=== PATIENT | male | born 1995 | race Caucasian/White ===

== ENCOUNTER 2016-04-19 20:43 | Emergency (ER) | payer BC ==
--- NOTE | 2016-04-19 21:12 | ERPHSYRPT ---
- History of Present Illness Time Seen by Provider: 04/19/16 21:02 Source: patient Exam Limitations: no limitations Patient Subjective Stated Complaint: Per EMS pt with history of seizures, takes medication but unsure of name - pt sts not taken medicine for 2 weeks. Sts tonight that he felt tired and then "went out". Pt sts he woke up to EMS starting IV. Sees Dr. Bhandari and Dr. Marquez. EMS sts family described grand mal seizure lasting a few minutes. Sts pain in temples 08/15. Pt denies falling or striking head. Pt sts heard sounds prior to having seizure. Triage Nursing Assessment: Pt alert, answers all questions appropriately at present however pt still appears sleepy. Able to follow commands. Skin p/w/d, resps non-labored. Physician History: TONIGHT PT HAD TINNITUS WHILE STANDING UP IN THE BATHROOM URINATING AND LOST CONSCIOUSNESS WITH A FEW MINUTES OF GENERALIZED SEIZURE ACTIVITY. PT WAS ON KEPPRA 500MG DAILY FOR HIS SEIZURES BUT HAS NOT TAKEN IT FOR THE PAST 6 MONTHS. PT ALSO STATES HE IS ANXIOUS ABOUT BECOMING A FATHER IN ABOUT 4 MONTHS, QUITTING HIS JOB AT [employer] YESTERDAY AND STARTING A NEW JOB AT [employer] ON . PT DENIES CHEST PAIN, SHORTNESS OF AIR, ABDOMINAL PAIN, BACK PAIN; ADMITS TO A BI-TEMPORAL HEADACHE(COMMON FOR PT POST SEIZURE). Allergies/Adverse Reactions: ceftriaxone sodium [From Rocephin] Allergy (Verified 04/19/16 20:46) sulfamethoxazole [From Bactrim] Adverse Reaction (Severe, Verified 04/19/16 20: 46) urinate blood trimethoprim [From Bactrim] Adverse Reaction (Severe, Verified 04/19/16 20:46) urinate blood Home Medications: Anti-Seizure Medication 04/19/16 [History] Escitalopram Oxalate [Lexapro] 0 mg 04/19/16 [History] Hx Tetanus, Diphtheria Vaccination/Date Given: Yes (up to date) Hx Influenza Vaccination/Date Given: No Hx Pneumococcal Vaccination/Date Given: No Immunizations Up to Date: Yes - Review of Systems Ears, Nose, & Throat: Tinnitus Respiratory: No Dyspnea Cardiac: No Chest Pain Abdominal/Gastrointestinal: No Abdominal Pain, No Vomiting Musculoskeletal: No Back Pain Neurological: Headache, Seizure Psychological: Anxiety All Other Systems: Reviewed and Negative - Past Medical History Pertinent Past Medical History: Yes Neurological History: Seizures Musculoskeletal History: Other History: No Pertinent History Psycho-Social History: Other Other Medical History: CHRONIC BACK PAIN - Past Surgical History Past Surgical History: Yes Neuro Surgical History: No Pertinent History Cardiac: No Pertinent History Respiratory: No Pertinent History Gastrointestinal: No Pertinent History Genitourinary: No Pertinent History Musculoskeletal: Orthopedic Surgery Male Surgical History: No Pertinent History Other Surgical History: right leg surgery - Social History Smoking Status: Light tobacco smoker Exposure to second hand smoke: No Drug Use: none Patient Lives Alone: No - Nursing Vital Signs Nursing Vital Signs: Initial Vital Signs Temperature 97.2 F Temperature Source Oral Pulse Rate 108 Respiratory Rate 16 Blood Pressure [] 166/87 Pain Intensity 7 - Physical Exam General Appearance: alert Eye Exam: PERRL/EOMI Ears, Nose, Throat Exam: pharynx normal, moist mucous membranes Neck Exam: full range of motion Respiratory Exam: lungs clear Cardiovascular Exam: normal heart sounds Gastrointestinal/Abdomen Exam: soft, normal bowel sounds Back Exam: normal range of motion Extremity Exam: normal inspection, No pedal edema Neurologic Exam: alert, oriented x 3, cooperative, sensation nml, No motor deficits, No motor weakness Skin Exam: abrasion (~ 3 CM ABRASION/CONTUSION OF THE LEFT POSTERIOR MID BACK WITHOUT TENDERNESS OR CREPITUS.) SpO2 Interpretation: normal SpO2: 98 Oxygen Delivery: Room Air - Course Nursing assessment & vital signs reviewed: Yes - Radiology Exams Left Ribs X-ray Interpretation: Interpreted by me, No Fracture Ordered Tests: Active Orders 24 hr Category Date Time Status Maintenance Instructor STAT Care 04/19/16 21:05 Active IV Insertion STAT Care 04/19/16 21:07 Active RIBS UNILATERAL Stat Exams 04/19/16 21:13 Taken CBC W DIFF Stat Lab 04/19/16 21:19 Completed CMP Stat Lab 04/19/16 21:19 Completed MAGNESIUM Stat Lab 04/19/16 21:19 Completed UA W/ MICROSCOPIC Stat Lab 04/19/16 22:18 Completed Urine Triage Profile Stat Lab 04/19/16 22:18 Completed Medication Summary Generic Name Dose Route Start Last Admin Trade Name Freq PRN Reason Stop Dose Admin Levetiracetam 500 mg 04/19/16 21:15 04/19/16 21:42 Keppra 500 Mg PO 05/19/16 21:14 500 mg 1XONLY MAGGIE Administration Discontinued Medications Generic Name Dose Route Start Last Admin Trade Name Ashley PRN Reason Stop Dose Admin Potassium Chloride 20 meq 04/19/16 21:57 04/19/16 22:05 Klor Con 10 Meq PO 04/19/16 21:58 20 meq STAT ONE Administration Potassium Chloride Confirm 04/19/16 22:05 Klor Con 10 Meq Administered 04/19/16 22:06 Dose 20 meq PO .STK-MED ONE Lab/Rad Data: Laboratory Result Diagrams 04/19/16 21:19 04/19/16 21:19 Laboratory Results 04/19/16 04/19/16 04/19/16 Range/Units 22:18 22:18 21:19 WBC (4.0-10.5) K/mm3 RBC (4.1-5.6) M/mm3 Hgb (12.5-18.0) gm/dl Hct (42-50) % MCV (78-100) fl MCH (26-32) pg MCHC (32-36) g/dl RDW (11.5-14.0) % Plt Count (150-450) K/mm3 MPV (6-9.5) fl Gran % (36.0-66.0) % Lymphocytes % (24.0-44.0) % Monocytes % (0.0-12.0) % Eosinophils % (0.00-5.0) % Basophils % (0.0-0.4) % Basophils # (0-0.4) Sodium 143 (136-145) mEq/L Potassium 3.4 L (3.5-5.1) mEq/L Chloride 101 (98-107) mEq/L Carbon Dioxide 14.5 L* (21-32) mEq/L Anion Gap 30.9 H (5-15) MEQ/L BUN 12 (9-20) mg/dL Creatinine 1.81 H (0.55-1.30) mg/dl Estimated GFR 50 ML/MIN Glucose 137 H (70-110) MG/DL Calcium 9.1 (8.5-10.1) mg/dL Magnesium 2.3 (1.8-2.4) mg/dL Total Bilirubin 0.7 (0.2-1.0) mg/dL AST 20 (15-37) U/L ALT 20 (12-78) U/L Alkaline Phosphatase 78 (46-116) U/L Serum Total Protein 8.0 (6.4-8.2) gm/dL Albumin 5.1 H (3.4-5.0) g/dL Ur Collection Type VOID Urine Color YELLOW (YELLOW) Urine Appearance CLEAR (CLEAR) Urine pH 5.0 (5-6) Ur Specific [place] >=1.030 (1.005-1.025) Urine Protein 30 (Negative) Urine Glucose (UA) NEGATIVE (NEGATIVE) mg/dL Urine Ketones SMALL-15 (NEGATIVE) Urine Nitrite NEGATIVE (NEGATIVE) Urine Bilirubin NEGATIVE (NEGATIVE) Urine Urobilinogen 0.2 (0-1) mg/dL Urine WBC (Auto) NEGATIVE (NEGATIVE) Urine RBC (Auto) TRACE-LYSED (0-5) Juan/ul Urine Microscopic RBC 5-10 (0-2) /HPF Urine Microscopic WBC 0-2 (0-5) /HPF Ur Epithelial Cells RARE (FEW) /HPF Urine Bacteria MODERATE (NEGATIVE) /HPF Hyaline Casts 0-2 (0-2) /LPF Urine Mucus SLIGHT (NEGATIVE) /HPF Urine Opiates Level NEG. (NEGATIVE) Ur Methadone NEG. (NEGATIVE) Urine Barbiturates NEG. (NEGATIVE) Ur Phencyclidine (PCP) NEG. (NEGATIVE) Urine Amphetamine POS. (NEGATIVE) U Benzodiazepine Level NEG. (NEGATIVE) Urine Cocaine NEG. (NEGATIVE) Urine Marijuana (THC) NEG. (NEGATIVE) Specimen Received 04/19/16220904/19/16 Range/Units 21:19 WBC 8.3 (4.0-10.5) K/mm3 RBC 5.30 (4.1-5.6) M/mm3 Hgb 16.9 (12.5-18.0) gm/dl Hct 48.6 (42-50) % MCV 91.7 (78-100) fl MCH 31.9 (26-32) pg MCHC 34.8 (32-36) g/dl RDW 12.1 (11.5-14.0) % Plt Count 248 (150-450) K/mm3 MPV 11.1 H (6-9.5) fl Gran % 37.5 (36.0-66.0) % Lymphocytes % 50.2 H (24.0-44.0) % Monocytes % 10.5 (0.0-12.0) % Eosinophils % 1.3 (0.00-5.0) % Basophils % 0.5 (0.0-0.4) % Basophils # 0.04 (0-0.4) Sodium (136-145) mEq/L Potassium (3.5-5.1) mEq/L Chloride (98-107) mEq/L Carbon Dioxide (21-32) mEq/L Anion Gap (5-15) MEQ/L BUN (9-20) mg/dL Creatinine (0.55-1.30) mg/dl Estimated GFR ML/MIN Glucose (70-110) MG/DL Calcium (8.5-10.1) mg/dL Magnesium (1.8-2.4) mg/dL Total Bilirubin (0.2-1.0) mg/dL AST (15-37) U/L ALT (12-78) U/L Alkaline Phosphatase (46-116) U/L Serum Total Protein (6.4-8.2) gm/dL Albumin (3.4-5.0) g/dL Ur Collection Type Urine Color (YELLOW) Urine Appearance (CLEAR) Urine pH (5-6) Ur Specific [place] (1.005-1.025) Urine Protein (Negative) Urine Glucose (UA) (NEGATIVE) mg/dL Urine Ketones (NEGATIVE) Urine Nitrite (NEGATIVE) Urine Bilirubin (NEGATIVE) Urine Urobilinogen (0-1) mg/dL Urine WBC (Auto) (NEGATIVE) Urine RBC (Auto) (0-5) Juan/ul Urine Microscopic RBC (0-2) /HPF Urine Microscopic WBC (0-5) /HPF Ur Epithelial Cells (FEW) /HPF Urine Bacteria (NEGATIVE) /HPF Hyaline Casts (0-2) /LPF Urine Mucus (NEGATIVE) /HPF Urine Opiates Level (NEGATIVE) Ur Methadone (NEGATIVE) Urine Barbiturates (NEGATIVE) Ur Phencyclidine (PCP) (NEGATIVE) Urine Amphetamine (NEGATIVE) U Benzodiazepine Level (NEGATIVE) Urine Cocaine (NEGATIVE) Urine Marijuana (THC) (NEGATIVE) Specimen Received - Departure Time of Disposition: 23:15 Departure Disposition: Home Clinical Impression: SEIZURE, AMPHETAMINE USE, HYPOKALEMIA, ABRASION/CONTUSION TO LEFT MID BACK, ELEVATED CREATININE Condition: Fair Critical Care Time: No Referrals: KATIE BHANDARI MD [Primary Care Provider] - Instructions: Seizure Disorder -- Adult, Abrasion, Contusion Additional Instructions: FOLLOW UP WITH PRIVATE DOCTOR TOMORROW. NEOSPORIN DAILY TO ABRASION ON LEFT MID BACK FOR 1 WEEK. AVOID USING AMPHETAMINE.
[2016-04-19] MEDS ORDERED: KEPPRA 500 MG PO SCH (21:15)
[2016-04-19 21:22] LABS: BASOPHIL % 0.5 % (0.0-0.4); Eosinophil % 1.3 % (0.00-5.0); Granulocytes % 37.5 % (36.0-66.0); Lymphocytes % 50.2 % (24.0-44.0); Mean Cell Volume 91.7 fl (78-100); Mean Corpuscular Hemoglobin 31.9 pg (26-32); Mean Platelet Volume 11.1 fl (6-9.5); Monocytes % 10.5 % (0.0-12.0); Platelet Count 248 K/mm3 (150-450); Red Cell Distribution Width 12.1 % (11.5-14.0); White Blood Count 8.3 K/mm3 (4.0-10.5)
[2016-04-19 21:43] LABS: ALBUMIN 5.1 g/dL (3.4-5.0); ANION GAP 30.9 MEQ/L (5-15); BILIRUBIN,TOTAL 0.7 mg/dL (0.2-1.0); MAGNESIUM 2.3 mg/dL (1.8-2.4); Potassium 3.4 mEq/L (3.5-5.1)
[2016-04-19 21:45] LABS: Carbon Dioxide 14.5 mEq/L (21-32)
[2016-04-19] MEDS ORDERED: Klor Con 10 MEQ PO ONE ×2 (21:57→22:05)
[2016-04-19 22:52] VITALS: O2SAT 98
[2016-04-19 23:11] LABS: Bacteria MODERATE /HPF (NEGATIVE); COMPLETE URINE MICROSCOPIC? YES; Collection Type VOID; Epithelial Cells RARE /HPF (FEW); Hyaline Casts 0-2 /LPF (0-2); Mucus SLIGHT /HPF (NEGATIVE); WBC 0-2 /HPF (0-5)
[2016-04-19 23:38] VITALS: BP 164/87; PULSE 92
--- NOTE | 2016-04-20 09:04 | XRAY ---
Indication: Pain following fall. Comparison: None 2 views of the left ribs obtained. No bony, articular, or soft tissue abnormalities.
== END 2016-04-19 23:31 | disposition home or self-care (01) ==
LOC: ED 20:43
DX: R56.9 Unspecified convulsions (principal); F15.90 Other stimulant use, unspecified, uncomplicated; E87.6 Hypokalemia; S20.412A Abrasion of left back wall of thorax, initial encounter; S20.222A Contusion of left back wall of thorax, initial encounter; W18.39XA Other fall on same level, initial encounter; Y93.E8 Activity, other personal hygiene; R94.4 Abnormal results of kidney function studies; Z79.899 Other long term (current) drug therapy; H93.19 Tinnitus, unspecified ear; R51 Headache
CPT/HCPCS: 36415; 71100; 80053; 80307; 81000; 83735; 85025; 93041; 99283; 99284

== ENCOUNTER 2016-06-10 22:00 | Emergency (ER) | payer BC ==
[2016-06-10 22:05] VITALS: BP 133/77; O2SAT 100
[2016-06-10] MEDS ORDERED: XYLOCAINE 1% HCL 20 ML MDV ONE (22:31)
--- NOTE | 2016-06-10 22:46 | ERPHSYRPT ---
- History of Present Illness Time Seen by Provider: 06/10/16 22:42 Source: patient, police Exam Limitations: no limitations Patient Subjective Stated Complaint: pt brought to ed from local by guard- reports pt reported having a seizure tonight-non witness-post ictal state not witnessed-pt reprots hx of epilepsy-reports pain to tempal area Triage Nursing Assessment: pt pink warm et dry-able to answer questions correctly-pupils responsive-moving lo xtremities with ease Physician History: pt brought to ed from local by guard-reports pt reported having a seizure tonight-non witness-post ictal state not witnessed-pt reprots hx of epilepsy- reports pain to [place] area. laceration on left upper eye lid Timing/Duration: today Severity: mild Associated Symptoms: denies symptoms Allergies/Adverse Reactions: ceftriaxone sodium [From Rocephin] Allergy (Verified 06/10/16 22:05) sulfamethoxazole [From Bactrim] Adverse Reaction (Severe, Verified 06/10/16 22: 05) urinate blood trimethoprim [From Bactrim] Adverse Reaction (Severe, Verified 06/10/16 22:05) urinate blood Home Medications: Anti-Seizure Medication 04/19/16 [History] Escitalopram Oxalate [Lexapro] 20 mg PO DAILY 04/19/16 [History] Hx Tetanus, Diphtheria Vaccination/Date Given: Yes Hx Influenza Vaccination/Date Given: Yes (2015) Hx Pneumococcal Vaccination/Date Given: No Immunizations Up to Date: Yes - Review of Systems Constitutional: No Fever, No Chills Eyes: No Symptoms Ears, Nose, & Throat: No Symptoms Respiratory: No Cough, No Dyspnea Cardiac: No Chest Pain, No Edema, No Syncope Abdominal/Gastrointestinal: No Abdominal Pain, No Nausea, No Vomiting, No Diarrhea Genitourinary Symptoms: No Dysuria Musculoskeletal: No Back Pain, No Neck Pain Skin: Other (left upper eyelid laceration), No Rash Neurological: No Dizziness, No Focal Weakness, No Sensory Changes Psychological: No Symptoms Endocrine: No Symptoms All Other Systems: Reviewed and Negative - Past Medical History Pertinent Past Medical History: Yes Neurological History: Epilepsy, Seizures Musculoskeletal History: Other History: No Pertinent History Psycho-Social History: Other Other Medical History: CHRONIC BACK PAIN - Past Surgical History Past Surgical History: Yes Neuro Surgical History: No Pertinent History Cardiac: No Pertinent History Respiratory: No Pertinent History Gastrointestinal: No Pertinent History Genitourinary: No Pertinent History Musculoskeletal: Orthopedic Surgery Male Surgical History: No Pertinent History Other Surgical History: right leg surgery - Social History Smoking Status: Never smoker Exposure to second hand smoke: No Drug Use: none Patient Lives Alone: No - Nursing Vital Signs Nursing Vital Signs: Initial Vital Signs Temperature 97.7 F Temperature Source Oral Pulse Rate 90 Respiratory Rate 20 Blood Pressure [] 133/77 Pain Intensity 6 - Physical Exam General Appearance: no apparent distress, alert Eye Exam: PERRL/EOMI, eyes nml inspection Ears, Nose, Throat Exam: normal ENT inspection, TMs normal, pharynx normal, moist mucous membranes Neck Exam: normal inspection, non-tender, supple, full range of motion Respiratory Exam: normal breath sounds, lungs clear, No respiratory distress Cardiovascular Exam: regular rate/rhythm, normal heart sounds, normal peripheral pulses Gastrointestinal/Abdomen Exam: soft, normal bowel sounds, No tenderness, No mass Back Exam: normal inspection, normal range of motion, No CVA tenderness, No vertebral tenderness Extremity Exam: normal inspection, normal range of motion, pelvis stable Neurologic Exam: alert, oriented x 3, cooperative, normal mood/affect, nml cerebellar function, nml station & gait, sensation nml, No motor deficits Skin Exam: normal color, warm, dry, laceration (3 cms long left upper eye lid superficial laceration), No rash Lymphatic Exam: No adenopathy SpO2: 100 Oxygen Delivery: Room Air Procedures - Laceration/Wound Repair Left Other Wound Location: Left (upper eyelid) Wound Length (cm): 3 Wound's Depth, Shape: superficial Wound Explored: clean Irrigated: Yes Hibiclens Prep: Yes Anesthesia: local, 1% Lidocaine Volume Anesthetic (ccs): 3 Wound Debrided: minimal Wound Repaired With: sutures Suture Size/Type: 4-0, nylon Number of Sutures: 3 Layer Closure?: No - Course Nursing assessment & vital signs reviewed: Yes Ordered Tests: Medication Summary Discontinued Medications Generic Name Dose Route Start Last Admin Trade Name Freq PRN Reason Stop Dose Admin Lidocaine HCl Confirm 06/10/16 22:31 Xylocaine 1% Hcl 20 Ml Mdv Administered 06/10/16 22:32 Dose 5 ml .ROUTE .STK-MED ONE - Progress Progress: improved Counseled pt/family regarding: diagnosis, need for follow-up - Departure Time of Disposition: 23:06 Departure Disposition: Usp/Jail Clinical Impression: Seizure disorder Laceration of eyebrow and forehead Qualifiers: Encounter type: initial encounter Laterality: left Qualified Code(s): S01.112A - Laceration without foreign body of left eyelid and periocular area, initial encounter Condition: Stable Critical Care Time: No Referrals: KATIE BHANDARI MD [Primary Care Provider] - Instructions: Seizure Disorder -- Adult, Care for a Laceration After Repair, Laceration Repair -- Simple Additional Instructions: Please contact your physician for adjustment of your seizure medication dose. You have received 3 sutures on your left upper eyelid. Suture removal in 7 days. Please follow the instructions given to you. Please take your medication as prescribed if given. If symptoms recur or get worse, come back to the emergency room if you cannot reach your primary care physician, or call your primary care physician for an appointment. Again if your symptoms get worse, come back to the emergency room. Thanks for visiting emergency room, and let us take care of you.
[2016-06-10 23:08] VITALS: PULSE 88
[2016-06-11] MEDS ORDERED: XYLOCAINE 1% HCL 20 ML MDV IJ ONE (06:43)
== END 2016-06-10 23:23 | disposition home or self-care (01) ==
LOC: ED 22:00
PROC: 08QPXZZ Repair Left Upper Eyelid, External Approach (ICD-10-PCS; principal; 2016-06-10)
DX: S01.112A Laceration without foreign body of left eyelid and periocular area, initial encounter (principal); G40.909 Epilepsy, unspecified, not intractable, without status epilepticus
CPT/HCPCS: 12013; 99283

== ENCOUNTER 2017-08-15 07:56 | Emergency (ER) | payer BC ==
[2017-08-15] MEDS ORDERED: BACIGUENT PACKET TP ONE (08:12)
[2017-08-15] MEDS ORDERED: TORAdol 30 mg Injection IM ONE (08:13)
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
[2017-08-15] MEDS ORDERED: TORAdol 30 mg Injection ONE (08:29)
[2017-08-15] MEDS ORDERED: BACIGUENT PACKET ONE (08:29)
[2017-08-15 08:56] VITALS: BP 124/67; PULSE 51; O2SAT 96
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
== END 2017-08-15 09:10 | disposition home or self-care (01) ==
LOC: ED 07:56
DX: S40.022A Contusion of left upper arm, initial encounter (principal); S40.021A Contusion of right upper arm, initial encounter; S56.911A Strain of unspecified muscles, fascia and tendons at forearm level, right arm, initial encounter; M79.601 Pain in right arm; S00.511A Abrasion of lip, initial encounter; S50.811A Abrasion of right forearm, initial encounter; S00.532A Contusion of oral cavity, initial encounter; S05.11XA Contusion of eyeball and orbital tissues, right eye, initial encounter; V47.5XXA Car driver injured in collision with fixed or stationary object in traffic accident, initial encounter
CPT/HCPCS: 72040; 73060; 73090; 96372; 99284; J1885; A9270-GY

== ENCOUNTER 2017-09-20 22:48 | Emergency (ER) | payer BC, MEDICAID, OTHER ==
[2017-09-20] MEDS ORDERED: Phenergan 25 MG INJ IV ONE (23:11)
[2017-09-20] MEDS ORDERED: Sodium Chloride 0.9% 1000 ML 1,000 ML IV STA (23:11)
[2017-09-20] MEDS ORDERED: Sodium Chloride 0.9% 1000 ML 1,000 ML ONE (23:15)
[2017-09-20] MEDS ORDERED: Phenergan 25 MG INJ ONE (23:15)
--- NOTE | 2017-09-20 23:16 | ERPHSYRPT ---
- History of Present Illness Time Seen by Provider: 09/20/17 23:08 Source: patient Exam Limitations: no limitations Patient Subjective Stated Complaint: severe abdominal pain with N&V, and diarhea Triage Nursing Assessment: Pt is a resident at [facility], brought in by EMS with c/o of severe abdominal pain all day with nausea, vomiting, and diarhea , passed out and fell out of bed, was unresponsive for 5-6 minutes per long-term personnel, pt stated that he was hallucinating seeing his grandfather and was really hot when all of this happened, states that he has had abdominal pain for over a year but was using meth at the time so he thought it was due to that , abdomen is tender to touch, denies radiation, pulses normal, BP 147/91, doesn' t appear to be in any distress Physician History: 22-year-old white male resident of the long-term with history of epilepsy, seizures, chronic back pain. Patient apparently complaining of abdominal pain nausea diarrhea vomiting all day long. Apparently began to complain of severe abdominal pain rolled out of bed became unresponsive for 5-6 minutes apparently having hallucinations and seeing his grandfather. Patient apparently with a history of methamphetamine use he states he has not had any methamphetamines for approximately 30 days. Past medical history includes epilepsy, seizures, chronic back pain. Past surgical history includes orthopedic surgery and right leg surgery. Social history positive for methamphetamine abuse in the past. Timing/Duration: today (just prior to arrival) Severity: moderate Modifying Factors: Improves With: nothing Associated Symptoms: nausea, vomiting, abdominal pain, syncope Allergies/Adverse Reactions: ceftriaxone sodium [From Rocephin] Allergy (Verified 09/20/17 23:06) sulfamethoxazole [From Bactrim] Adverse Reaction (Severe, Verified 09/20/17 23: 06) urinate blood trimethoprim [From Bactrim] Adverse Reaction (Severe, Verified 09/20/17 23:06) urinate blood Hx Tetanus, Diphtheria Vaccination/Date Given: Yes Hx Influenza Vaccination/Date Given: Yes (2015) Hx Pneumococcal Vaccination/Date Given: No - Review of Systems Constitutional: No Fever, No Chills Eyes: No Symptoms Ears, Nose, & Throat: No Symptoms Respiratory: No Cough, No Dyspnea Cardiac: Syncope, No Chest Pain, No Edema Abdominal/Gastrointestinal: Abdominal Pain, Nausea, Vomiting, Diarrhea Genitourinary Symptoms: No Dysuria Musculoskeletal: No Back Pain, No Neck Pain Skin: No Rash Neurological: No Dizziness, No Focal Weakness, No Sensory Changes Psychological: Other (apparently hallucinating in long-term) Endocrine: No Symptoms All Other Systems: Reviewed and Negative - Past Medical History Pertinent Past Medical History: Yes Neurological History: Epilepsy, Seizures Musculoskeletal History: Other History: No Pertinent History Psycho-Social History: Other Other Medical History: CHRONIC BACK PAIN - Past Surgical History Past Surgical History: Yes Neuro Surgical History: No Pertinent History Cardiac: No Pertinent History Respiratory: No Pertinent History Gastrointestinal: No Pertinent History Genitourinary: No Pertinent History Musculoskeletal: Orthopedic Surgery Male Surgical History: No Pertinent History Other Surgical History: right leg surgery - Social History Smoking Status: Never smoker Exposure to second hand smoke: No Drug Use: methamphetamines Patient Lives Alone: No - Nursing Vital Signs Nursing Vital Signs: Initial Vital Signs Temperature 98.0 F 09/20/17 22:50 Pulse Rate 85 09/20/17 22:50 Respiratory Rate 14 09/20/17 22:50 Blood Pressure 144/93 09/20/17 22:50 O2 Sat by Pulse Oximetry 98 09/20/17 22:50 Pain Scale Pain Intensity 9 - Physical Exam General Appearance: no apparent distress, alert Eye Exam: PERRL/EOMI, eyes nml inspection Ears, Nose, Throat Exam: normal ENT inspection, TMs normal, pharynx normal, moist mucous membranes Neck Exam: normal inspection, non-tender, supple, full range of motion Respiratory Exam: normal breath sounds, lungs clear, No respiratory distress Cardiovascular Exam: regular rate/rhythm, normal heart sounds, normal peripheral pulses Gastrointestinal/Abdomen Exam: normal bowel sounds, tenderness (Mild diffuse tenderness) Back Exam: normal inspection, normal range of motion, No CVA tenderness, No vertebral tenderness Extremity Exam: normal inspection, normal range of motion, pelvis stable Neurologic Exam: alert, oriented x 3, cooperative, member of [employer] II-XII nml as tested, normal mood/affect, nml cerebellar function, nml station & gait, sensation nml, No motor deficits Skin Exam: normal color, warm, dry, No rash Lymphatic Exam: No adenopathy SpO2 Interpretation: normal (98%) SpO2: 98 Oxygen Delivery: Room Air - Course Nursing assessment & vital signs reviewed: Yes EKG Interpreted by Me: RATE (91 bpm), Sinus Rhythm, NORMAL AXIS, Other - CT Exams Abdomen/Pelvis CT Interpretation: Tele-radiologist Report (CT abdomen and pelvis without contrast: Impression 1. Gas and fluid throughout the small bowel. Subtle distal small bowel wall thickening. Liquid stool in portions of the colon. Findings may represent a degree of diarrhea/enterocolitis. No bowel obstruction. 2. Punctate bilateral nonobstructing nephrolithiasis) Ordered Tests: Active Orders 24 hr Category Date Time Status EKG-ER Only STAT Care 09/20/17 23:11 Active IV Insertion STAT Care 09/20/17 23:11 Active ABDOMEN AND PELVIS W/0 CONTRAS [CT] Stat Exams 09/21/17 00:04 Taken ACETAMINOPHEN Stat Lab 09/20/17 23:25 Completed AMYLASE Stat Lab 09/20/17 23:25 Completed CBC W DIFF Stat Lab 09/20/17 23:25 Completed CMP Stat Lab 09/20/17 23:25 Completed LIPASE Stat Lab 09/20/17 23:25 Completed SALICYLATE Stat Lab 09/20/17 23:25 Completed UA W/RFX UR CULTURE Stat Lab 09/20/17 23:50 Completed Urine Triage Profile Stat Lab 09/20/17 23:50 Completed Medication Summary Discontinued Medications Generic Name Dose Route Start Last Admin Trade Name Freq PRN Reason Stop Dose Admin Diphenhydramine HCl 25 mg 09/21/17 00:03 09/21/17 00:12 Benadryl 50 Mg/Ml IV 09/21/17 00:04 25 mg STAT ONE Administration Diphenhydramine HCl Confirm 09/21/17 00:10 Benadryl 50 Mg/Ml Administered 09/21/17 00:11 Dose 50 mg .ROUTE .STK-MED ONE Sodium Chloride 1,000 mls @ 999 mls/hr 09/20/17 23:11 09/21/17 02:00 Sodium Chloride 0.9% 1000 Ml IV 09/21/17 00:11 Infused .Q1H1M STA Infusion Sodium Chloride Confirm 09/20/17 23:15 Sodium Chloride 0.9% 1000 Ml Administered 09/20/17 23:16 Dose 1,000 mls @ ud .ROUTE .STK-MED ONE Promethazine HCl 12.5 mg 09/20/17 23:11 09/20/17 23:20 Phenergan 25 Mg Inj IV 09/20/17 23:12 12.5 mg STAT ONE Administration Promethazine HCl Confirm 09/20/17 23:15 Phenergan 25 Mg Inj Administered 09/20/17 23:16 Dose 25 mg .ROUTE .STK-MED ONE Lab/Rad Data: Laboratory Result Diagrams 09/20/17 23:25 09/20/17 23:25 Laboratory Results 09/20/17 09/20/17 09/20/17 Range/Units 23:50 23:50 23:25 WBC (4.0-10.5) K/mm3 RBC (4.1-5.6) M/mm3 Hgb (12.5-18.0) gm/dl Hct (42-50) % MCV (78-100) fl MCH (26-32) pg MCHC (32-36) g/dl RDW (11.5-14.0) % Plt Count (150-450) K/mm3 MPV (6-9.5) fl Gran % (36.0-66.0) % Eos # (Auto) (0-0.5) Absolute Lymphs (auto) (1.0-4.6) Absolute Monos (auto) (0.0-1.3) Lymphocytes % (24.0-44.0) % Monocytes % (0.0-12.0) % Eosinophils % (0.00-5.0) % Basophils % (0.0-0.4) % Absolute Granulocytes (1.4-6.9) Basophils # (0-0.4) Sodium (137-145) mmol/L Potassium (3.5-5.1) mmol/L Chloride (98-107) mmol/L Carbon Dioxide (22-30) mmol/L Anion Gap (5-15) MEQ/L BUN (9-20) mg/dL Creatinine (0.66-1.25) mg/dL Estimated GFR ML/MIN Glucose (74-106) mg/dL Calcium (8.4-10.2) mg/dL Total Bilirubin (0.2-1.3) mg/dL AST (17-59) U/L ALT (0-50) U/L Alkaline Phosphatase (38-126) U/L Serum Total Protein (6.3-8.2) g/dL Albumin (3.5-5.0) g/dL Amylase (30-110) U/L Lipase (23-300) U/L Ur Collection Type CLEAN CATCH Urine Color YELLOW (YELLOW) Urine Appearance CLEAR (CLEAR) Urine pH 6.5 (5-6) Ur Specific Copen 1.015 (1.005-1.025) Urine Protein NEGATIVE (Negative) Urine Ketones NEGATIVE (NEGATIVE) Urine Blood NEGATIVE (0-5) Juan/ul Urine Nitrite NEGATIVE (NEGATIVE) Urine Bilirubin NEGATIVE (NEGATIVE) Urine Urobilinogen NORMAL (0-1) mg/dL Ur Leukocyte Esterase NEGATIVE (NEGATIVE) Urine Culture Reflexed NO (NO) Urine Glucose NEGATIVE (NEGATIVE) mg/dL Salicylates < 1.0 L (2-20) mg/dL Urine Opiates Level NEGATIVE (NEGATIVE) Ur Methadone NEGATIVE (NEGATIVE) Acetaminophen < 10 L (10-30) ug/ml Urine Barbiturates NEGATIVE (NEGATIVE) Ur Phencyclidine (PCP) NEGATIVE (NEGATIVE) Urine Amphetamine NEGATIVE (NEGATIVE) U Benzodiazepine Level NEGATIVE (NEGATIVE) Urine Cocaine NEGATIVE (NEGATIVE) Urine Marijuana (THC) NEGATIVE (NEGATIVE) Specimen Received 09/20/17 2350 09/20/17 09/20/17 Range/Units 23:25 23:25 WBC 11.5 H (4.0-10.5) K/mm3 RBC 4.74 (4.1-5.6) M/mm3 Hgb 15.0 (12.5-18.0) gm/dl Hct 43.7 (42-50) % MCV 92.2 (78-100) fl MCH 31.6 (26-32) pg MCHC 34.3 (32-36) g/dl RDW 12.4 (11.5-14.0) % Plt Count 199 (150-450) K/mm3 MPV 10.4 H (6-9.5) fl Gran % 79.5 H (36.0-66.0) % Eos # (Auto) 0.14 (0-0.5) Absolute Lymphs (auto) 1.32 (1.0-4.6) Absolute Monos (auto) 0.88 (0.0-1.3) Lymphocytes % 11.5 L (24.0-44.0) % Monocytes % 7.6 (0.0-12.0) % Eosinophils % 1.2 (0.00-5.0) % Basophils % 0.2 (0.0-0.4) % Absolute Granulocytes 9.15 H (1.4-6.9) Basophils # 0.02 (0-0.4) Sodium 140 (137-145) mmol/L Potassium 3.6 (3.5-5.1) mmol/L Chloride 103 (98-107) mmol/L Carbon Dioxide 25 (22-30) mmol/L Anion Gap 15.2 H (5-15) MEQ/L BUN 12 (9-20) mg/dL Creatinine 0.71 (0.66-1.25) mg/dL Estimated GFR > 60.0 ML/MIN Glucose 112 H (74-106) mg/dL Calcium 9.0 (8.4-10.2) mg/dL Total Bilirubin 0.20 (0.2-1.3) mg/dL AST 18 (17-59) U/L ALT 21 (0-50) U/L Alkaline Phosphatase 88 (38-126) U/L Serum Total Protein 6.7 (6.3-8.2) g/dL Albumin 4.4 (3.5-5.0) g/dL Amylase 95 (30-110) U/L Lipase 63 (23-300) U/L Ur Collection Type Urine Color (YELLOW) Urine Appearance (CLEAR) Urine pH (5-6) Ur Specific Copen (1.005-1.025) Urine Protein (Negative) Urine Ketones (NEGATIVE) Urine Blood (0-5) Juan/ul Urine Nitrite (NEGATIVE) Urine Bilirubin (NEGATIVE) Urine Urobilinogen (0-1) mg/dL Ur Leukocyte Esterase (NEGATIVE) Urine Culture Reflexed (NO) Urine Glucose (NEGATIVE) mg/dL Salicylates (2-20) mg/dL Urine Opiates Level (NEGATIVE) Ur Methadone (NEGATIVE) Acetaminophen (10-30) ug/ml Urine Barbiturates (NEGATIVE) Ur Phencyclidine (PCP) (NEGATIVE) Urine Amphetamine (NEGATIVE) U Benzodiazepine Level (NEGATIVE) Urine Cocaine (NEGATIVE) Urine Marijuana (THC) (NEGATIVE) Specimen Received - Progress Progress: improved Progress Note: 09/21/17 01:38 22-year-old white male with history of epilepsy, seizures, chronic back pain. Who states that he hasn't used methamphetamines in the past but none since approximately one month who is incarcerated. Arrives with complaint of vomiting nausea diarrhea all day today. States he's been having diffuse abdominal pain. Patient apparently had an episode at the long-term where he began to complain of pain in his abdomen, rolled out of the cot onto the floor and was unresponsive for several minutes. Patient arrives he is alert oriented 3 he states he has abdominal pain diffuse. He states he's been having nausea vomiting diarrhea. On physical examination patient is alert, oriented 3 Head is atraumatic normocephalic Eyes PERRLA EOMI fundi are unremarkable. Ears TMs torrez intact bilaterally. Nose is clear throat is clear neck supple. Lungs are clear. Heart regular rate and rhythm without murmur. Abdomen soft diffuse tenderness positive bowel sounds negative rebound negative masses negative hepatosplenomegaly Extremities full range of motion pulse equal symmetrical 2 over 4 neuro patient alert oriented 3. Labs CBC white cell slightly elevated 11.5 hemoglobin 15 hematocrit 43.7 platelets 199 urinalysis is normal with specific gravity of 1.015 pH is 6.5 negative ketones chemistry is essentially normal and anion gap is slightly elevated at 15.2 acetaminophen and salicylate level are normal urine drug screen is normal CT of the abdomen remarkable for gas and fluid throughout small bowel. There is a subtle distal small bowel thickening. There is liquid stool and portions of the colon. Findings may represent a degree of diarrheaenterocolitis there is no bowel obstruction. There is punctate bilateral nonobstructing gentry nephrolithiasis there are no findings to suggest appendicitis \Patient has been given normal saline 1 L. He was given Phenergan 12.5 mg IV Benadryl 25 mg IV. Patient appeared to be comfortable at CT however when he was wheeled back to the ER he was moaning somewhat. He is currently comfortable and resting. . Impression gastroenteritis. Abdominal pain. Plan return to long-term. Plenty of fluids clear fluids only 24-48 hours if abdominal pain, nausea vomiting or diarrhea. Phenergan 25 mg orally every 4-6 hours as needed for nausea vomiting or abdominal pain. - Departure Time of Disposition: 01:55 Departure Disposition: Alf/Halfway Clinical Impression: Gastroenteritis Abdominal pain Qualifiers: Abdominal location: generalized Qualified Code(s): R10.84 - Generalized abdominal pain Syncope Qualifiers: Syncope type: unspecified Qualified Code(s): R55 - Syncope and collapse Condition: Fair Critical Care Time: No Referrals: ANNABELLA SHAHID MD [Primary Care Provider] - Additional Instructions: Return home. Plenty of fluids. Clear fluids only 24-48 hours if abdominal pain nausea vomiting or diarrhea. Phenergan 25 mg orally every 4-6 hours as needed for nausea vomiting or abdominal pain. Follow-up with long-term physician . return for acute distress or for severe symptoms. Prescriptions: Promethazine HCl 25 mg [Phenergan 25 mg] 25 mg PO Q4-6HPRN PRN #12 tablet PRN Reason: abd. pain, nausea , vomiting
[2017-09-20 23:25] LABS: BASOPHIL % 0.2 % (0.0-0.4); Basophil (Absolute #) 0.02 (0-0.4); Eosinophil % 1.2 % (0.00-5.0); Eosinophil (Absolute #) 0.14 (0-0.5); Granulocyte Absolute (ANC) 9.15 (1.4-6.9); Granulocytes % 79.5 % (36.0-66.0); Hematocrit 43.7 % (42-50); Lymphocyte (Absolute #) 1.32 (1.0-4.6); Lymphocytes % 11.5 % (24.0-44.0); Mean Cell Volume 92.2 fl (78-100); Mean Corpuscular Hemoglobin 31.6 pg (26-32); Mean Corpuscular Hgb Concent. 34.3 g/dl (32-36); Mean Platelet Volume 10.4 fl (6-9.5); Monocyte (Absolute #) 0.88 (0.0-1.3); Monocytes % 7.6 % (0.0-12.0); Platelet Count 199 K/mm3 (150-450); Red Blood Count 4.74 M/mm3 (4.1-5.6); Red Cell Distribution Width 12.4 % (11.5-14.0); White Blood Count 11.5 K/mm3 (4.0-10.5)
[2017-09-20 23:49] LABS: ACETAMINOPHEN < 10 ug/ml (10-30); ALBUMIN 4.4 g/dL (3.5-5.0); ALKALINE PHOSPHATASE 88 U/L (38-126); AMYLASE 95 U/L (30-110); ANION GAP 15.2 MEQ/L (5-15); BLOOD UREA NITROGEN 12 mg/dL (9-20); CHLORIDE 103 mmol/L (98-107); Carbon Dioxide 25 mmol/L (22-30); Creatinine 1 0.71 mg/dL (0.66-1.25); Glucose 112 mg/dL (74-106); LIPASE 63 U/L (23-300); Potassium 3.6 mmol/L (3.5-5.1); SALICYLATE < 1.0 mg/dL (2-20); SGOT/AST 18 U/L (17-59); SGPT/ALT 21 U/L (0-50); SODIUM 140 mmol/L (137-145); Total Protein 6.7 g/dL (6.3-8.2)
[2017-09-20 23:55] LABS: Appearance CLEAR (CLEAR); Bilirubin NEGATIVE (NEGATIVE); Blood NEGATIVE Ery/ul (0-5); Glucose NEGATIVE (NEGATIVE); Ketones NEGATIVE (NEGATIVE); Leukocyte Esterase NEGATIVE (NEGATIVE); Nitrite NEGATIVE (NEGATIVE); Ph 6.5 (5-6); Protein,Urine Dip NEGATIVE (Negative); Specific Gravity 1.015 (1.005-1.025); Urobilinogen NORMAL mg/dL (0-1)
[2017-09-21] MEDS ORDERED: BENADRYL 50 MG/ML IV ONE (00:03)
[2017-09-21 00:09] LABS: Amphetamine,Urine NEGATIVE (NEGATIVE); Barbiturate,Urine NEGATIVE (NEGATIVE); Benzodiazepine,Urine NEGATIVE (NEGATIVE); Cocaine,Urine NEGATIVE (NEGATIVE); Methadone,Urine NEGATIVE (NEGATIVE); Opiate,Urine NEGATIVE (NEGATIVE); PCP,Urine NEGATIVE (NEGATIVE); THC,Urine NEGATIVE (NEGATIVE)
[2017-09-21] MEDS ORDERED: BENADRYL 50 MG/ML ONE (00:10)
[2017-09-21 02:11] VITALS: BP 140/85; PULSE 94; O2SAT 99
--- NOTE | 2017-09-21 09:02 | XRAY ---
Indication: Abdomen pain, nausea, and vomiting. History renal stones. Multiple contiguous axial images obtained through the abdomen and pelvis without contrast as ordered. Comparison: December 14, 2015. Lung bases remain clear. Heart is not enlarged. Stomach is now markedly distended with food/fluid. Noncontrasted stomach and bowel loops appear nonobstructed. New mild uniformly fluid distended small and large bowel loops with air-fluid leveling and mild wall thickening favoring enterocolitis. Normal appendix. No free fluid/air. New nonobstructing punctate calculus in each kidney. Remaining liver, gallbladder, pancreas, spleen, adrenal glands, kidneys, ureters, bladder, and aorta appear unremarkable for noncontrast exam. Osseous structures intact. No ventral or inguinal hernias. Impression: 1. New fluid distended small and large bowel loops with fluid leveling and wall thickening favoring enterocolitis. 2. New nonobstructing bilateral renal micro-calculus. 3. Remaining CT abdomen/pelvis without contrast exam is negative. Comment: Preliminary interpretation was made by [facility]. No critical discrepancy. CT DI 11.78
== END 2017-09-21 02:11 | disposition home or self-care (01) ==
LOC: ED 22:48
DX: K52.9 Noninfective gastroenteritis and colitis, unspecified (principal); R10.9 Unspecified abdominal pain; R11.2 Nausea with vomiting, unspecified; R55 Syncope and collapse
CPT/HCPCS: 36415; 74176; 80053; 80307; 81002; 82150; 83690; 85025; 93005; 96360; 96374; 96375; 99284; G0481; J1200; J2550

== ENCOUNTER 2018-10-08 06:14 | Emergency (ER) | payer BC ==
[2018-10-08] MEDS ORDERED: Zofran 4 MG/2 ML VIAL IV ONE (06:47)
[2018-10-08] MEDS ORDERED: Sodium Chloride 0.9% 1000 ML 1,000 ML IV STA (06:47)
[2018-10-08] MEDS ORDERED: Sodium Chloride 0.9% 1000 ML 1,000 ML ONE (06:52)
[2018-10-08] MEDS ORDERED: Zofran 4 MG/2 ML VIAL ONE (06:52)
[2018-10-08 06:58] LABS: BASOPHIL % 0.4 % (0.0-0.4); Basophil (Absolute #) 0.02 (0-0.4); Eosinophil % 2.4 % (0.00-5.0); Eosinophil (Absolute #) 0.13 (0-0.5); Granulocyte Absolute (ANC) 3.06 (1.4-6.9); Granulocytes % 55.8 % (36.0-66.0); Hematocrit 45.7 % (42-50); Hemoglobin 15.6 gm/dl (12.5-18.0); Lymphocyte (Absolute #) 1.83 (1.0-4.6); Lymphocytes % 33.5 % (24.0-44.0); Mean Cell Volume 92.5 fl (78-100); Mean Corpuscular Hemoglobin 31.6 pg (26-32); Mean Corpuscular Hgb Concent. 34.1 g/dl (32-36); Mean Platelet Volume 10.4 fl (6-9.5); Monocyte (Absolute #) 0.43 (0.0-1.3); Monocytes % 7.9 % (0.0-12.0); Platelet Count 181 K/mm3 (150-450); Red Blood Count 4.94 M/mm3 (4.1-5.6); Red Cell Distribution Width 12.2 % (11.5-14.0); White Blood Count 5.5 K/mm3 (4.0-10.5)
[2018-10-08 07:01] LABS: Appearance SLIGHTLY CLOUDY (CLEAR); Bilirubin NEGATIVE (NEGATIVE); Blood NEGATIVE Ery/ul (0-5); Glucose NEGATIVE (NEGATIVE); Ketones NEGATIVE (NEGATIVE); Leukocyte Esterase NEGATIVE (NEGATIVE); Mucus MODERATE /HPF (NEGATIVE); Nitrite NEGATIVE (NEGATIVE); Protein,Urine Dip NEGATIVE (Negative); Specific Gravity 1.024 (1.005-1.025); Urobilinogen NEGATIVE mg/dL (0-1); WBC 0-2 /HPF (0-5)
[2018-10-08 07:06] LABS: ALBUMIN 4.4 g/dL (3.5-5.0); ALKALINE PHOSPHATASE 60 U/L (38-126); AMYLASE 95 U/L (30-110); ANION GAP 11.4 MEQ/L (5-15); BLOOD UREA NITROGEN 14 mg/dL (9-20); CHLORIDE 105 mmol/L (98-107); Calcium 9.3 mg/dL (8.4-10.2); Carbon Dioxide 27 mmol/L (22-30); Creatinine 1 0.92 mg/dL (0.66-1.25); Glucose 87 mg/dL (74-106); LIPASE 77 U/L (23-300); Potassium 3.9 mmol/L (3.5-5.1); SGOT/AST 22 U/L (17-59); SGPT/ALT 19 U/L (0-50); SODIUM 140 mmol/L (137-145); Total Protein 7.2 g/dL (6.3-8.2)
--- NOTE | 2018-10-08 07:59 | XRAY ---
Indication: Right lower quadrant pain. Status post fall. Dizziness. Multiple contiguous axial images obtained through the abdomen and pelvis without contrast as ordered. Comparison: September 21, 2017. Lung bases remain clear. Heart is not enlarged. Noncontrasted stomach and bowel loops appear nonobstructed. Normal appendix. Ascending and transverse colon demonstrates circumferential wall thickening either incomplete distention versus colitis. No free fluid/air. Again nonobstructing right renal microcalculus. Remaining liver, pancreas, spleen, adrenal glands, kidneys, ureters, bladder, and aorta appear unremarkable for noncontrast exam. Osseous structures intact. Impression: 1. Right hemicolon wall thickening either incomplete distention versus colitis. 2. Stable nonobstructing right renal microcalculus. 3. Remaining CT abdomen/pelvis without contrast exam is negative. Comment: Preliminary interpretation was made by [facility]. No critical discrepancy. CTDI 10.83
[2018-10-08 08:33] VITALS: BP 104/56; PULSE 56; O2SAT 99
--- NOTE | 2018-10-08 10:20 | ERPHSYRPT ---
- History of Present Illness Historian: patient Exam Limitations: no limitations Patient Subjective Stated Complaint: pt states, "I was getting carts at work this morning and I fell. My work called my mom to come pick me up". Mom states , "he was doubled over in pain and could hardly walk". Triage Nursing Assessment: Pt was wheeled in w/c back to room 7. Pt alert and oriented. Pt c/o RLQ pain which radiates to his low back. Abd soft and flat with active bs x4 quad, tender on palpation. Lungs clear, heart tones reg. Timing/Duration: day(s) (5) Activities at Onset: activity (standing at work) Quality: sharpness, stabbing Abdominal Pain Onset Location: RUQ, RLQ Pain Radiation: no radiation Severity of Pain-Max: severe Severity of Pain-Current: severe Modifying Factors: Improves With: nothing Associated Symptoms: diarrhea, other (patient began 5 days ago with intermittent pain and diarrhea; pain would last for 30-60 minutes and resolve on its own. Today's pain caused him to go down at work, hitting the front of his head when going down from a standing position. He denies loss of consciousness), No back, No chest pain, No diaphoresis, No fever/chills, No fatigue, No headache, No heartburn, No loss of appetite, No nausea, No neck pain , No rash, No shortness of breath, No syncope, No testicular pain, No vomiting, No weakness Previous symptoms: same symptoms as today, other (patient hit the front of his head going down from a standing position after having the severe right sided abdominal pain at work today prior to coming into the emergency department; no loss of consciousness) Allergies/Adverse Reactions: ceftriaxone sodium [From Rocephin] Allergy (Verified 09/20/17 23:06) sulfamethoxazole [From Bactrim] Adverse Reaction (Severe, Verified 09/20/17 23: 06) urinate blood trimethoprim [From Bactrim] Adverse Reaction (Severe, Verified 09/20/17 23:06) urinate blood Home Medications: Levetiracetam 750 mg PO HS 10/08/18 [History] Levetiracetam [Spritam] 500 mg PO DAILY 10/08/18 [History] Hx Tetanus, Diphtheria Vaccination/Date Given: Yes Hx Influenza Vaccination/Date Given: No Hx Pneumococcal Vaccination/Date Given: No Immunizations Up to Date: Yes - Review of Systems Constitutional: No Fever, No Chills Eyes: No Symptoms Ears, Nose, & Throat: No Symptoms Respiratory: No Cough, No Dyspnea Cardiac: No Chest Pain, No Edema, No Syncope Abdominal/Gastrointestinal: Abdominal Pain, No Nausea, No Vomiting, No Diarrhea Genitourinary Symptoms: No Dysuria Musculoskeletal: No Back Pain, No Neck Pain Skin: No Rash Neurological: No Dizziness, No Focal Weakness, No Sensory Changes Psychological: No Symptoms Endocrine: No Symptoms Hematologic/Lymphatic: No Easy Bruising, No Adenopathy All Other Systems: Reviewed and Negative - Past Medical History Pertinent Past Medical History: Yes Neurological History: Epilepsy, Seizures ENT History: No Pertinent History Cardiac History: No Pertinent History Respiratory History: No Pertinent History Endocrine Medical History: No Pertinent History Musculoskeletal History: No Pertinent History, Other GI Medical History: No Pertinent History History: No Pertinent History Psycho-Social History: No Pertinent History Male Reproductive Disorders: No Pertinent History Other Medical History: CHRONIC BACK PAIN (3 bulging disks) - Past Surgical History Past Surgical History: Yes Neuro Surgical History: No Pertinent History Cardiac: No Pertinent History Respiratory: No Pertinent History Gastrointestinal: No Pertinent History Genitourinary: No Pertinent History Musculoskeletal: Orthopedic Surgery Male Surgical History: No Pertinent History Other Surgical History: right leg surgery - Social History Smoking Status: Former smoker Exposure to second hand smoke: Yes Drug Use: none Patient Lives Alone: No - Nursing Vital Signs Nursing Vital Signs: Initial Vital Signs Temperature 97.5 F 10/08/18 06:27 Pulse Rate 55 L 10/08/18 06:27 Respiratory Rate 17 10/08/18 06:27 Blood Pressure 131/73 10/08/18 06:27 O2 Sat by Pulse Oximetry 99 10/08/18 06:27 Pain Scale Pain Intensity 2 - Physical Exam General Appearance: no apparent distress, alert Eye Exam: PERRL/EOMI, eyes nml inspection Ears, Nose, Throat Exam: normal ENT inspection, pharynx normal, moist mucous membranes Neck Exam: normal inspection, non-tender, supple, full range of motion Respiratory Exam: normal breath sounds, lungs clear, No respiratory distress Cardiovascular Exam: regular rate/rhythm, normal heart sounds Gastrointestinal/Abdomen Exam: soft, normal bowel sounds, No tenderness, No mass , No guarding, No pulsatile mass, No rebound, No hernia, No hepatomegaly, No organomegaly, No splenomegaly Back Exam: normal inspection, normal range of motion, No CVA tenderness, No vertebral tenderness Extremity Exam: normal inspection, normal range of motion, pelvis stable Neurologic Exam: alert, oriented x 3, cooperative, normal mood/affect, nml cerebellar function, sensation nml, No motor deficits Skin Exam: normal color, warm, dry Lymphatic Exam: No inguinal node tender (L), No inguinal node tender (R) SpO2 Interpretation: normal SpO2: 99 O2 Delivery: Room Air - Course Nursing assessment & vital signs reviewed: Yes - CT Exams Abdomen/Pelvis CT Interpretation: Discussed w/radiologist, Normal Appendix, Other (no obstructive stone or hydronephrosis; thickened appearance of the proximal colon may be due to underdistension, mild colitis not excluded) Ordered Tests: Active Orders 24 hr Category Date Time Status IV Insertion STAT Care 10/08/18 06:47 Active ABDOMEN AND PELVIS W/0 CONTRAS [CT] Stat Exams 10/08/18 06:48 Completed AMYLASE Stat Lab 10/08/18 06:52 Completed CBC W DIFF Stat Lab 10/08/18 06:52 Completed CMP Stat Lab 10/08/18 06:52 Completed LIPASE Stat Lab 10/08/18 06:52 Completed Lactic Acid Stat Lab 10/08/18 06:47 Completed UA W/RFX UR CULTURE Stat Lab 10/08/18 06:52 Completed Medication Summary Discontinued Medications Generic Name Dose Route Start Last Admin Trade Name Freq PRN Reason Stop Dose Admin Sodium Chloride 1,000 mls @ 999 mls/hr 10/08/18 06:47 10/08/18 08:19 Sodium Chloride 0.9% 1000 Ml IV 10/08/18 07:47 Infused .Q1H1M STA Infusion Sodium Chloride Confirm 10/08/18 06:52 Sodium Chloride 0.9% 1000 Ml Administered 10/08/18 06:53 Dose 1,000 mls @ ud .ROUTE .STK-MED ONE Ondansetron HCl 4 mg 10/08/18 06:47 10/08/18 06:57 Zofran 4 Mg/2 Ml Vial IV 10/08/18 06:48 4 mg STAT ONE Administration Ondansetron HCl Confirm 10/08/18 06:52 Zofran 4 Mg/2 Ml Vial Administered 10/08/18 06:53 Dose 4 mg .ROUTE .STK-MED ONE Lab/Rad Data: Laboratory Result Diagrams 10/08/18 06:52 10/08/18 06:52 Laboratory Results 10/08/18 10/08/18 10/08/18 Range/Units 06:52 06:52 06:52 WBC 5.5 (4.0-10.5) K/mm3 RBC 4.94 (4.1-5.6) M/mm3 Hgb 15.6 (12.5-18.0) gm/dl Hct 45.7 (42-50) % MCV 92.5 (78-100) fl MCH 31.6 (26-32) pg MCHC 34.1 (32-36) g/dl RDW 12.2 (11.5-14.0) % Plt Count 181 (150-450) K/mm3 MPV 10.4 H (6-9.5) fl Gran % 55.8 (36.0-66.0) % Eos # (Auto) 0.13 (0-0.5) Absolute Lymphs (auto) 1.83 (1.0-4.6) Absolute Monos (auto) 0.43 (0.0-1.3) Lymphocytes % 33.5 (24.0-44.0) % Monocytes % 7.9 (0.0-12.0) % Eosinophils % 2.4 (0.00-5.0) % Basophils % 0.4 (0.0-0.4) % Absolute Granulocytes 3.06 (1.4-6.9) Basophils # 0.02 (0-0.4) Sodium 140 (137-145) mmol/L Potassium 3.9 (3.5-5.1) mmol/L Chloride 105 (98-107) mmol/L Carbon Dioxide 27 (22-30) mmol/L Anion Gap 11.4 (5-15) MEQ/L BUN 14 (9-20) mg/dL Creatinine 0.92 (0.66-1.25) mg/dL Estimated GFR > 60.0 ML/MIN Glucose 87 (74-106) mg/dL Lactic Acid (0.4-2.0) Calcium 9.3 (8.4-10.2) mg/dL Total Bilirubin 0.30 (0.2-1.3) mg/dL AST 22 (17-59) U/L ALT 19 (0-50) U/L Alkaline Phosphatase 60 (38-126) U/L Serum Total Protein 7.2 (6.3-8.2) g/dL Albumin 4.4 (3.5-5.0) g/dL Amylase 95 (30-110) U/L Lipase 77 (23-300) U/L Urine Color YELLOW (YELLOW) Urine Appearance SLIGHTLY CLOUDY (CLEAR) Urine pH 6.0 (5-6) Ur Specific Cosby 1.024 (1.005-1.025) Urine Protein NEGATIVE (Negative) Urine Ketones NEGATIVE (NEGATIVE) Urine Blood NEGATIVE (0-5) Juan/ul Urine Nitrite NEGATIVE (NEGATIVE) Urine Bilirubin NEGATIVE (NEGATIVE) Urine Urobilinogen NEGATIVE (0-1) mg/dL Ur Leukocyte Esterase NEGATIVE (NEGATIVE) Urine WBC (Auto) 0-2 (0-5) /HPF Urine RBC (Auto) NONE (0-2) /HPF U Epithel Cells (Auto) NONE (FEW) /HPF Urine Bacteria (Auto) NONE (NEGATIVE) /HPF Urine Mucus (Auto) MODERATE (NEGATIVE) /HPF Urine Culture Reflexed NO (NO) Urine Glucose NEGATIVE (NEGATIVE) mg/dL 10/08/18 Range/Units 06:47 WBC (4.0-10.5) K/mm3 RBC (4.1-5.6) M/mm3 Hgb (12.5-18.0) gm/dl Hct (42-50) % MCV (78-100) fl MCH (26-32) pg MCHC (32-36) g/dl RDW (11.5-14.0) % Plt Count (150-450) K/mm3 MPV (6-9.5) fl Gran % (36.0-66.0) % Eos # (Auto) (0-0.5) Absolute Lymphs (auto) (1.0-4.6) Absolute Monos (auto) (0.0-1.3) Lymphocytes % (24.0-44.0) % Monocytes % (0.0-12.0) % Eosinophils % (0.00-5.0) % Basophils % (0.0-0.4) % Absolute Granulocytes (1.4-6.9) Basophils # (0-0.4) Sodium (137-145) mmol/L Potassium (3.5-5.1) mmol/L Chloride (98-107) mmol/L Carbon Dioxide (22-30) mmol/L Anion Gap (5-15) MEQ/L BUN (9-20) mg/dL Creatinine (0.66-1.25) mg/dL Estimated GFR ML/MIN Glucose (74-106) mg/dL Lactic Acid 0.5 (0.4-2.0) Calcium (8.4-10.2) mg/dL Total Bilirubin (0.2-1.3) mg/dL AST (17-59) U/L ALT (0-50) U/L Alkaline Phosphatase (38-126) U/L Serum Total Protein (6.3-8.2) g/dL Albumin (3.5-5.0) g/dL Amylase (30-110) U/L Lipase (23-300) U/L Urine Color (YELLOW) Urine Appearance (CLEAR) Urine pH (5-6) Ur Specific Cosby (1.005-1.025) Urine Protein (Negative) Urine Ketones (NEGATIVE) Urine Blood (0-5) Juan/ul Urine Nitrite (NEGATIVE) Urine Bilirubin (NEGATIVE) Urine Urobilinogen (0-1) mg/dL Ur Leukocyte Esterase (NEGATIVE) Urine WBC (Auto) (0-5) /HPF Urine RBC (Auto) (0-2) /HPF U Epithel Cells (Auto) (FEW) /HPF Urine Bacteria (Auto) (NEGATIVE) /HPF Urine Mucus (Auto) (NEGATIVE) /HPF Urine Culture Reflexed (NO) Urine Glucose (NEGATIVE) mg/dL - Progress Progress: improved (patient had no acute intra-abdominal findings on examination , labwork or CT imaging needing any immediate surgical evaluation or inpatient admission at this time), re-examined Progress Note: 10/08/18 08:19 Pain resolved. No genitourinary pain. Patient's abdomen is soft, non-tender and non-distended. No CVA tenderness bilaterally Counseled pt/family regarding: lab results, diagnosis, need for follow-up, rad results - Departure Departure Disposition: Home, Extended Care Facility Clinical Impression: Right sided abdominal pain, Diarrhea, Right sided colitis, Closed head injury without loss of consciousness, Elevated blood pressure reading without diagnosis of hypertension Condition: Good Critical Care Time: No Referrals: KATIE BHANDARI MD [Primary Care Provider] - Instructions: Acute Abdomen (Belly Pain), Adult (DC), Diarrhea in Adolescents and Adults, Colitis Forms: Work/School Release Form Prescriptions: Diphenoxylate HCl/Atropine [Lomotil Tablet] 1 each PO TID PRN #10 tablet PRN Reason: Diarrhea
== END 2018-10-08 08:25 | disposition home or self-care (01) ==
LOC: ED 06:14
DX: R10.9 Unspecified abdominal pain (principal); K52.9 Noninfective gastroenteritis and colitis, unspecified; S09.90XA Unspecified injury of head, initial encounter; W18.30XA Fall on same level, unspecified, initial encounter; Y92.481 Parking lot as the place of occurrence of the external cause; Y99.0 Civilian activity done for income or pay
CPT/HCPCS: 36000; 36415; 74176; 80053; 81001; 82150; 83605; 83690; 85025; 96374; 99284; J2405

== ENCOUNTER 2020-11-24 20:48 | Emergency (ER) | payer BC, OTHER ==
[2020-11-24] MEDS ORDERED: Sodium Chloride 0.9% 1000 ML 1,000 ML IV STA (21:35)
[2020-11-24] MEDS ORDERED: Sodium Chloride 0.9% 1000 ML 1,000 ML ONE (21:37)
[2020-11-24 21:55] LABS: Absolute Neutrophil Ct (ANC) 2.24 (1.4-6.9); BASOPHIL % 0.6 % (0.0-0.4); Basophil (Absolute #) 0.03 (0-0.4); Eosinophil % 2.4 % (0.00-5.0); Eosinophil (Absolute #) 0.13 (0-0.5); Hematocrit 41.2 % (42-50); Hemoglobin 13.7 gm/dl (12.5-18.0); Lymphocyte (Absolute #) 2.39 (1.0-4.6); Lymphocytes % 44.1 % (24.0-44.0); Mean Cell Volume 94.9 fl (78-100); Mean Corpuscular Hemoglobin 31.6 pg (26-32); Mean Corpuscular Hgb Concent. 33.3 g/dl (32-36); Mean Platelet Volume 11.1 fl (7.5-11.0); Monocyte (Absolute #) 0.63 (0.0-1.3); Monocytes % 11.6 % (0.0-12.0); Neutrophil % 41.3 % (36.0-66.0); Platelet Count 176 K/mm3 (150-450); Red Blood Count 4.34 M/mm3 (4.1-5.6); Red Cell Distribution Width 12.8 % (11.5-14.0); White Blood Count 5.4 K/mm3 (4.0-10.5)
[2020-11-24 22:03] LABS: ALBUMIN 4.2 g/dL (3.5-5.0); ALKALINE PHOSPHATASE 53 U/L (38-126); ANION GAP 13.2 MEQ/L (5-15); BLOOD UREA NITROGEN 14 mg/dL (9-20); CHLORIDE 102 mmol/L (98-107); CK-Creatinine Phosphokinase 171 U/L (55-170); Calcium 9.1 mg/dL (8.4-10.2); Carbon Dioxide 29 mmol/L (22-30); Creatinine 1 0.85 mg/dL (0.66-1.25); EST GLOMERULAR FILTRATION RATE > 60.0 ML/MIN; Glucose 103 mg/dL (74-106); MAGNESIUM 1.8 mg/dL (1.6-2.3); Potassium 3.7 mmol/L (3.5-5.1); SGOT/AST 22 U/L (17-59); SGPT/ALT 13 U/L (0-50); SODIUM 140 mmol/L (137-145); Total Protein 6.3 g/dL (6.3-8.2)
[2020-11-24 22:09] VITALS: O2SAT 98
[2020-11-24] MEDS ORDERED: SODIUM CHLORIDE 0.9% IV ONE (22:25)
[2020-11-24] MEDS ORDERED: DILANTIN IV ONE (22:25)
[2020-11-24] MEDS ORDERED: TORAdol 30 mg Injection IV ONE (22:26)
[2020-11-24] MEDS ORDERED: Reglan 10 MG/2 ML IV ONE (22:26)
[2020-11-24] MEDS ORDERED: BENADRYL 50 MG/ML IV ONE (22:26)
[2020-11-24] MEDS ORDERED: BENADRYL 50 MG/ML ONE (22:30)
[2020-11-24] MEDS ORDERED: DILANTIN IV 250 MG/5 ML ONE (22:30)
[2020-11-24] MEDS ORDERED: TORAdol 30 mg Injection ONE (22:30)
[2020-11-24] MEDS ORDERED: Sodium Chloride 0.9% 100 ML BAG 100 ML ONE (22:31)
[2020-11-24] MEDS ORDERED: Reglan 10 MG/2 ML ONE (22:31)
--- NOTE | 2020-11-24 22:31 | ERPHSYRPT ---
- History of Present Illness Time Seen by Provider: 11/24/20 20:55 Source: patient Exam Limitations: no limitations Patient Subjective Stated Complaint: I have a migraine and feel like I'm going to have a seizure Triage Nursing Assessment: pt c/o migraine headache and feels like he's going to have a seizure. Pt is very emotional, tearful. 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 Pt had a seizure 2 days ago in his sleep, witnessed by girlfriend at home. Physician History: 25 years old with history of seizures off and on despite being on medication presented to the ER with seizure activity and sleep witnessed by girlfriend 2 days ago. Patient reports he was working with [employer] pipe since mild chemical which triggered. Since yesterday he has had a generalized headache more on the right side dull to sharp moderate intensity without any significant aggravating or relieving factors. Denies any visual disturbance, numbness tingling or focal weakness. Patient reports this would probably leads to her car and seizure activity and wants some help before it goes that route. Has been taking his routine medications. Patient reports he has been going through a lot of stress because of her new job which is also a trigger for seizure. Denies any recent drug or alcohol use. Allergies/Adverse Reactions: ceftriaxone sodium [From Rocephin] Allergy (Intermediate, Verified 11/24/20 21:06) Itching sulfamethoxazole [From Bactrim] Adverse Reaction (Severe, Verified 11/24/20 21:05) urinate blood trimethoprim [From Bactrim] Adverse Reaction (Severe, Verified 11/24/20 21:05) urinate blood Home Medications: Aripiprazole [Abilify] 5 mg PO HS 11/24/20 [History] Divalproex Sodium [Divalproex Sodium ER] 1,000 mg PO HS 11/24/20 [History] Divalproex Sodium [Divalproex Sodium ER] 750 mg PO DAILY 11/24/20 [History] Hx Tetanus, Diphtheria Vaccination/Date Given: Yes Hx Influenza Vaccination/Date Given: No Hx Pneumococcal Vaccination/Date Given: No Immunizations Up to Date: Yes Travel Risk - International Travel Have you traveled outside of the country in past 3 weeks: No - Coronavirus Screening Are you exhibiting any of the following symptoms?: Yes Symptoms: Headaches/Body Aches/Fatigue Close contact with a COVID-19 positive Pt in past 14-21 Days: No - Vaccine Status Have you recieved a Covid-19 vaccination: No - Review of Systems Constitutional: No Symptoms Eyes: No Symptoms Ears, Nose, & Throat: No Symptoms Respiratory: No Symptoms Cardiac: No Symptoms Abdominal/Gastrointestinal: No Symptoms Genitourinary Symptoms: No Symptoms Musculoskeletal: No Symptoms Skin: No Symptoms Neurological: Headache, Seizure Psychological: Anxiety Endocrine: No Symptoms Hematologic/Lymphatic: No Symptoms Immunological/Allergic: No Symptoms - Past Medical History Pertinent Past Medical History: Yes Neurological History: Epilepsy, Seizures ENT History: No Pertinent History Cardiac History: No Pertinent History Respiratory History: No Pertinent History Endocrine Medical History: No Pertinent History Musculoskeletal History: Other GI Medical History: No Pertinent History History: No Pertinent History Psycho-Social History: No Pertinent History Male Reproductive Disorders: No Pertinent History Other Medical History: CHRONIC BACK PAIN (3 bulging disks) - Past Surgical History Past Surgical History: Yes Neuro Surgical History: No Pertinent History Cardiac: No Pertinent History Respiratory: No Pertinent History Gastrointestinal: No Pertinent History Genitourinary: No Pertinent History Musculoskeletal: Orthopedic Surgery Male Surgical History: No Pertinent History Other Surgical History: right leg surgery - Social History Smoking Status: Former smoker Exposure to second hand smoke: Yes Drug Use: none Patient Lives Alone: No - Nursing Vital Signs Nursing Vital Signs: Initial Vital Signs Temperature 97.4 F 11/24/20 20:55 Pulse Rate 64 11/24/20 20:55 Respiratory Rate 20 11/24/20 20:55 Blood Pressure 158/98 11/24/20 20:55 O2 Sat by Pulse Oximetry 100 11/24/20 20:55 Pain Scale Pain Intensity 5 - Physical Exam General Appearance: no apparent distress, alert, anxiety Eye Exam: PERRL/EOMI, eyes nml inspection Ears, Nose, Throat Exam: normal ENT inspection, TMs normal, pharynx normal Neck Exam: normal inspection, non-tender, supple, full range of motion Respiratory Exam: normal breath sounds, lungs clear Cardiovascular Exam: regular rate/rhythm, normal heart sounds Gastrointestinal/Abdomen Exam: soft, No tenderness Back Exam: normal inspection, normal range of motion Extremity Exam: normal inspection, normal range of motion, pelvis stable Neurologic Exam: alert, oriented x 3, 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, 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, nml cerebellar function, nml station & gait, sensation nml, No normal mood/affect (Anxious) Skin Exam: normal color SpO2 Interpretation: normal SpO2: 98 O2 Delivery: Room Air Ordered Tests: Active Orders 24 hr Category Date Time Status CBC W DIFF Stat Lab 11/24/20 21:10 Completed CK-Creatinine Phosphokinase Stat Lab 11/24/20 21:10 Completed CMP Stat Lab 11/24/20 21:10 Completed MAGNESIUM Stat Lab 11/24/20 21:10 Completed UA W/RFX UR CULTURE Stat Lab 11/24/20 21:36 Ordered Urine Triage Profile Stat Lab 11/24/20 Ordered Medication Summary Discontinued Medications Generic Name Dose Route Start Last Admin Trade Name Freq PRN Reason Stop Dose Admin Diphenhydramine HCl 25 mg 11/24/20 22:26 11/24/20 22:38 Diphenhydramine Hcl 50 Mg/Ml Vial IV 11/24/20 22:27 25 mg STAT ONE Administration Diphenhydramine HCl Confirm 11/24/20 22:30 Diphenhydramine Hcl 50 Mg/Ml Vial Administered 11/24/20 22:31 Dose 50 mg .ROUTE .STK-MED ONE Sodium Chloride 1,000 mls @ 999 mls/hr 11/24/20 21:35 11/24/20 21:39 Sodium Chloride 0.9% 1000 Ml IV 11/24/20 22:35 999 mls/hr .Q1H1M STA Administration Sodium Chloride Confirm 11/24/20 21:37 Sodium Chloride 0.9% 1000 Ml Administered 11/24/20 21:38 Dose 1,000 mls @ ud .ROUTE .STK-MED ONE Phenytoin Sodium 1,000 mg/ 120 mls @ 240 mls/hr 11/24/20 22:25 11/24/20 22:39 Sodium Chloride IV 11/24/20 22:54 240 mls/hr STAT ONE Administration Sodium Chloride Confirm 11/24/20 22:31 Sodium Chloride 0.9% 100 Ml Bag Administered 11/24/20 22:32 Dose 100 mls @ ud .ROUTE .STK-MED ONE Ketorolac Tromethamine 30 mg 11/24/20 22:26 11/24/20 22:38 Ketorolac Tromethamine 30 Mg/Ml Inj IV 11/24/20 22:27 30 mg STAT ONE Administration Ketorolac Tromethamine Confirm 11/24/20 22:30 Ketorolac Tromethamine 30 Mg/Ml Inj Administered 11/24/20 22:31 Dose 30 mg .ROUTE .STK-MED ONE Metoclopramide HCl 10 mg 11/24/20 22:26 11/24/20 22:38 Metoclopramide Hcl 10 Mg/2 Ml Vial IV 11/24/20 22:27 10 mg STAT ONE Administration Metoclopramide HCl Confirm 11/24/20 22:31 Metoclopramide Hcl 10 Mg/2 Ml Vial Administered 11/24/20 22:32 Dose 10 mg .ROUTE .STK-MED ONE Phenytoin Sodium Confirm 11/24/20 22:30 Phenytoin Sodium 250 Mg/5 Ml Vial Administered 11/24/20 22:31 Dose 1,000 mg .ROUTE .STK-MED ONE Lab/Rad Data: Laboratory Result Diagrams 11/24/20 21:10 11/24/20 21:10 Laboratory Results 11/24/20 11/24/20 Range/Units 21:10 21:10 WBC 5.4 (4.0-10.5) K/mm3 RBC 4.34 (4.1-5.6) M/mm3 Hgb 13.7 (12.5-18.0) gm/dl Hct 41.2 L (42-50) % MCV 94.9 (78-100) fl MCH 31.6 (26-32) pg MCHC 33.3 (32-36) g/dl RDW 12.8 (11.5-14.0) % Plt Count 176 (150-450) K/mm3 MPV 11.1 H (7.5-11.0) fl Gran % 41.3 (36.0-66.0) % Eos # (Auto) 0.13 (0-0.5) Absolute Lymphs (auto) 2.39 (1.0-4.6) Absolute Monos (auto) 0.63 (0.0-1.3) Lymphocytes % 44.1 H (24.0-44.0) % Monocytes % 11.6 (0.0-12.0) % Eosinophils % 2.4 (0.00-5.0) % Basophils % 0.6 (0.0-0.4) % Absolute Granulocytes 2.24 (1.4-6.9) Basophils # 0.03 (0-0.4) Sodium 140 (137-145) mmol/L Potassium 3.7 (3.5-5.1) mmol/L Chloride 102 (98-107) mmol/L Carbon Dioxide 29 (22-30) mmol/L Anion Gap 13.2 (5-15) MEQ/L BUN 14 (9-20) mg/dL Creatinine 0.85 (0.66-1.25) mg/dL Estimated GFR > 60.0 ML/MIN Glucose 103 (74-106) mg/dL Calcium 9.1 (8.4-10.2) mg/dL Magnesium 1.8 (1.6-2.3) mg/dL Total Bilirubin 0.40 (0.2-1.3) mg/dL AST 22 (17-59) U/L ALT 13 (0-50) U/L Alkaline Phosphatase 53 (38-126) U/L Creatine Kinase 171 H (55-170) U/L Serum Total Protein 6.3 (6.3-8.2) g/dL Albumin 4.2 (3.5-5.0) g/dL - Progress Progress: improved, re-examined Progress Note: 11/24/20 23:20 Is given fluids along with migraine cocktail and Dilantin. Patient is feeling better and his headache is resolved. Nonfocal neuro exam throughout stay in the ER. Baseline work-up unremarkable. Recommend continue with his current medications and outpatient follow-up with his primary care and neurologist. Discussed signs symptoms of worsening needing return to ER which he seems understanding. Counseled pt/family regarding: lab results, diagnosis, need for follow-up - Departure Departure Disposition: Home Clinical Impression: Migraine Qualifiers: Migraine type: unspecified Status migrainosus presence: without status migrainosus Intractability: not intractable Qualified Code(s): G43.909 - Migraine, unspecified, not intractable, without status migrainosus Condition: Stable Critical Care Time: No Referrals: KATIE BHANDARI MD [Primary Care Provider] - (Call tomorrow for reevaluation 1 to 2 days.) Instructions: Seizures, Adult (DC), Migraines (DC) Additional Instructions: Drink plenty of fluids. Continue with your current medications. Follow-up with your primary care neurologist for reevaluation. Return to ER for intractable migraine, seizures, numbness tingling or focal weakness etc.
[2020-11-24 23:41] VITALS: PULSE 85
[2020-11-24 23:59] VITALS: BP 106/72
== END 2020-11-24 23:59 | disposition home or self-care (01) ==
LOC: ED 20:48
DX: G40.909 Epilepsy, unspecified, not intractable, without status epilepticus (principal)
CPT/HCPCS: 36415; 80053; 82550; 83735; 85025; 96360; 96374; 96375; 99284; J1165; J1200; J1885

== ENCOUNTER 2021-04-16 21:03 | Emergency (ER) | payer OTHER ==
--- NOTE | 2021-04-16 21:28 | ERPHSYRPT ---
- History of Present Illness Source: patient Exam Limitations: no limitations Patient Subjective Stated Complaint: C/O a sorethroat that started several hours ago. C/O increased pain with swallowing. Triage Nursing Assessment: Patient ambulated back to ED without difficulties. No SOB noted. He is alert and oriented and answering questions appropriately; has a flat affect. Throat noted to be red upon inspection. Physician History: [address] w [address]/Cough/Coryza/N/diarrhea today wo fever/otalgia/vomiting. Timing/Duration: this morning Severity: mild ENT Location: throat Prearrival Treatment: no prearrival treatment Modifying Factors: Improves With: nothing Associated Symptoms: cough, nasal congestion/drainage, sore throat, No ear pain (R), No ear pain (L), No fever, No chills, No change in hearing, No dizziness, No drooling, No ear drainage, No facial pain/swelling, No headache, No hearing loss, No jaw pain, No malaise, No motion sickness, No epistaxis, No nasal foreign body, No neck pain, No poor fluid intake, No poor solids intake, No ringing of ears, No swollen glands, No sinus infection, No tooth pain, No difficulty swallowing, No voice change Allergies/Adverse Reactions: ceftriaxone sodium [From Rocephin] Allergy (Intermediate, Verified 04/16/21 21: 08) Itching sulfamethoxazole [From Bactrim] Adverse Reaction (Severe, Verified 04/16/21 21:08) urinate blood trimethoprim [From Bactrim] Adverse Reaction (Severe, Verified 04/16/21 21:08) urinate blood Home Medications: ARIPiprazole [Aripiprazole] 1 tab PO EVENING MEAL 04/16/21 [History] Divalproex Sodium [Divalproex Sodium ER] 1 tab PO BID 04/16/21 [History] Hx Tetanus, Diphtheria Vaccination/Date Given: No (Not tetanus) Hx Influenza Vaccination/Date Given: No Hx Pneumococcal Vaccination/Date Given: No Immunizations Up to Date: Yes Travel Risk - International Travel Have you traveled outside of the country in past 3 weeks: No - Coronavirus Screening Are you exhibiting any of the following symptoms?: No Close contact with a COVID-19 positive Pt in past 14-21 Days: Yes - Vaccine Status Have you recieved a Covid-19 vaccination: Yes 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 - Vaccination Dates Dates if Unknown: January 2021 Comment: Received at [facility] but 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 of industrial safety 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 - Review of Systems Constitutional: No Symptoms Eyes: No Symptoms Ears, Nose, & Throat: No Symptoms, Nose Congestion, Nose Discharge, Throat Pain Respiratory: No Symptoms, Cough Cardiac: No Symptoms Abdominal/Gastrointestinal: No Symptoms, Nausea, Diarrhea Genitourinary Symptoms: No Symptoms Musculoskeletal: No Symptoms Skin: No Symptoms Neurological: No Symptoms Psychological: No Symptoms Endocrine: No Symptoms Hematologic/Lymphatic: No Symptoms Immunological/Allergic: No Symptoms - Past Medical History Pertinent Past Medical History: Yes Neurological History: Epilepsy, Seizures ENT History: No Pertinent History Cardiac History: No Pertinent History Respiratory History: No Pertinent History Endocrine Medical History: No Pertinent History Musculoskeletal History: Other GI Medical History: No Pertinent History History: No Pertinent History Psycho-Social History: No Pertinent History Male Reproductive Disorders: No Pertinent History Other Medical History: CHRONIC BACK PAIN (3 bulging disks) - Past Surgical History Past Surgical History: Yes Neuro Surgical History: No Pertinent History Cardiac: No Pertinent History Respiratory: No Pertinent History Gastrointestinal: No Pertinent History Genitourinary: No Pertinent History Musculoskeletal: Orthopedic Surgery Male Surgical History: No Pertinent History Other Surgical History: right leg surgery - Social History Smoking Status: Former smoker Exposure to second hand smoke: Yes Drug Use: none Patient Lives Alone: Yes Significant Family History: no pertinent family hx - Nursing Vital Signs Nursing Vital Signs: Initial Vital Signs Temperature 98.9 F 04/16/21 21:08 Pulse Rate 65 04/16/21 21:08 Respiratory Rate 16 04/16/21 21:08 Blood Pressure 127/76 04/16/21 21:08 O2 Sat by Pulse Oximetry 99 04/16/21 21:08 Pain Scale Pain Intensity 7 WNL - Physical Exam General Appearance: no apparent distress Eye Exam: bilateral eye: normal inspection, PERRL, EOMI Ear Exam: bilateral ear: auricle normal, other (Cerumen occlusion B) Nasal Exam: normal inspection Throat Exam: moist mucus membranes (Mild pharyngeal erythema), No dental tendern ess, No excessive drooling, No foreign body, No mandibular swelling, No maxillary swelling, No pharynx swelling, No pharynx tenderness, No tongue swollen, No tonsillar exudate, No tonsillar swelling, No uvula swelling, No voice changes Neck Exam: normal inspection, non-tender, supple, full range of motion, trachea midline, No JVD Cardiovascular/Respiratory Exam: normal breath sounds, regular rate/rhythm, heart sounds normal, no respiratory distress Abdominal Exam: non-tender, soft Neurologic Exam: alert, oriented x 3, cooperative, rfid systems architect II-XII nml as tested, normal mood/affect, nml cerebellar function, nml station & gait, sensation nml, No motor deficits, No sensory deficit Skin Exam: normal color, warm, dry SpO2 Interpretation: normal SpO2: 99 O2 Delivery: Room Air - Course Nursing assessment & vital signs reviewed: Yes Ordered Tests: Active Orders 24 hr Category Date Time Status COVID AG-BINAX NOW RAPID TEST Stat Lab 04/16/21 21:40 Completed Lab/Rad Data: Laboratory Results 04/16/21 04/16/21 Range/Units 21:40 21:40 SARS-CoV-2 Ag (Rapid) NEGATIVE (NEGATIVE) Group A Strep Antibody NOT DETECTED (NEGATIVE) - Progress Counseled pt/family regarding: lab results, diagnosis, need for follow-up - Departure Departure Disposition: Home Clinical Impression: Viral syndrome Condition: Stable Critical Care Time: No Referrals: KATIE BHANDARI MD [Primary Care Provider] - Follow up/PCP as directed Instructions: Sore Throat, Adult (DC), Viral Pharyngitis (DC) Additional Instructions: Rest/Fluids/Motrin/Tylenol Follow up with your family MD for continued symptoms
[2021-04-16 21:55] LABS: COVID AG -BINAX NOW RAPID TEST NEGATIVE (NEGATIVE)
[2021-04-16 22:16] VITALS: BP 126/63; PULSE 62
[2021-04-16 23:02] VITALS: O2SAT 99
== END 2021-04-16 22:24 | disposition home or self-care (01) ==
LOC: ED 21:03
DX: B34.9 Viral infection, unspecified (principal); J02.9 Acute pharyngitis, unspecified; R05.9 Cough, unspecified; R09.81 Nasal congestion; R19.7 Diarrhea, unspecified; Z79.899 Other long term (current) drug therapy
CPT/HCPCS: 87651; 99000; 99283

== ENCOUNTER 2022-01-31 21:57 | Emergency (ER) | payer BC, OTHER ==
[2022-01-31] MEDS ORDERED: TYLENOL 325 MG PO ONE (22:47)
[2022-01-31] MEDS ORDERED: Ativan 2 MG/1 ML VIAL IV ONE (22:49)
[2022-01-31 23:02] LABS: Absolute Neutrophil Ct (ANC) 2.21 x10^3/uL (1.4-6.9); Basophil (Absolute #) 0.04 x10^3/uL (0-0.4); Eosinophil % 1.6 % (0.00-5.0); Eosinophil (Absolute #) 0.08 x10^3/uL (0-0.5); Hematocrit 44.8 % (42-50); Hemoglobin 15.3 g/dL (12.5-18.0); Lymphocytes % 41.7 % (24.0-44.0); Mean Cell Volume 94.1 fL (78-100); Mean Corpuscular Hemoglobin 32.1 pg (26-32); Mean Corpuscular Hgb Concent. 34.2 g/dL (32-36); Mean Platelet Volume 10.9 fL (7.5-11.0); Monocytes % 11.9 % (0.0-12.0); Neutrophil % 43.8 % (36.0-66.0); Platelet Count 186 x10^3/uL (150-450); Red Blood Count 4.76 x10^6/uL (4.1-5.6); Red Cell Distribution Width 11.7 % (11.5-14.0)
[2022-01-31] MEDS ORDERED: TYLENOL 325 MG ONE (23:15)
[2022-01-31] MEDS ORDERED: Ativan 2 MG/1 ML VIAL ONE (23:15)
[2022-01-31 23:16] LABS: ALBUMIN 4.8 g/dL (3.5-5.0); ALKALINE PHOSPHATASE 53 U/L (38-126); ANION GAP 12.2 MEQ/L (5-15); BLOOD UREA NITROGEN 18 mg/dL (9-20); CHLORIDE 101 mmol/L (98-107); Carbon Dioxide 29 mmol/L (22-30); Creatinine 1 0.85 mg/dL (0.66-1.25); EST GLOMERULAR FILTRATION RATE > 60.0 ML/MIN; Glucose 79 mg/dL (74-106); SGOT/AST 25 U/L (17-59); SGPT/ALT 18 U/L (0-50); SODIUM 138 mmol/L (137-145); Total Protein 7.5 g/dL (6.3-8.2)
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
[2022-02-01 02:05] VITALS: BP 113/73; PULSE 52
--- NOTE | 2022-02-01 09:06 | XRAY ---
Indication: Severe headache and slurred speech. Multiple contiguous axial images obtained through the head without contrast. Comparison: January 24, 2015 Ventriculosulcal pattern appears symmetric. No acute intracranial hemorrhage, abnormal extra-axial fluid collection, or mass effect. Fourth ventricle is midline without hydrocephalus. Catherine-white matter differentiation preserved. Bony calvarium intact. Visualized paranasal sinuses and mastoid air cells are clear. Impression: Negative CT head without contrast exam. Comment: Preliminary interpretation made by [facility]. No critical discrepancy.
[2022-02-03 16:38] VITALS: O2SAT 97
== END 2022-02-01 02:19 | disposition home or self-care (01) ==
LOC: ED 21:57
DX: G44.85 Primary stabbing headache (principal); G40.109 Localization-related (focal) (partial) symptomatic epilepsy and epileptic syndromes with simple partial seizures, not intractable, without status epilepticus; G11.8 Other hereditary ataxias; Z63.8 Other specified problems related to primary support group; Z79.899 Other long term (current) drug therapy
CPT/HCPCS: 36000; 36415; 70450; 80053; 80164; 83605; 85025; 93041; 96374; 99284; J2060; A9270-GY

== ENCOUNTER 2022-02-05 04:44 | Emergency (ER) | payer OTHER ==
[2022-02-05 04:54] VITALS: O2SAT 98
[2022-02-05] MEDS ORDERED: TORAdol 30 mg Injection IM ONE (05:25)
[2022-02-05] MEDS ORDERED: Compazine 10 MG/2 ML IM ONE (05:26)
--- NOTE | 2022-02-05 05:31 | ERPHSYRPT ---
- History of Present Illness Source: patient Exam Limitations: no limitations Patient Subjective Stated Complaint: headache that started at 6pm Triage Nursing Assessment: pt ambulated into ER without diff, family at bedside. Pt c/o headache to the back of his head and rt baptism area. Pt denies any nausea, vomiting or dizziness. Pt has hx of epilepsy and seizures but no seizure today. Physician History: 26 yo wm w h/o MGHA who was seen in the ER on 02/02/22 for the same complaint w neg CT head presents w R hemispheric BAKER. Pain is 8/10 and sharp. Bright lights and noise make the pain worse. He denies trauma/focal weakness/fever/N/V/stiff neck/cough/coryza. BAKER of 3 days duration. He has a h/o MGHA w similar symptoms. Timing/Duration: other (3 days) Quality: sharpness Head Pain Location: frontal (R hemispheric) Severity of Pain-Max: severe Severity of Pain-Current: severe Recent Head Trauma: occasional headaches Modifying Factors: Improves With: exposure to light, noise Associated Symptoms: denies symptoms, sensitive to light Previous symptoms: same symptoms as today Allergies/Adverse Reactions: ceftriaxone sodium [From Rocephin] Allergy (Intermediate, Verified 02/05/22 05:01) Itching sulfamethoxazole [From Bactrim] Adverse Reaction (Severe, Verified 02/05/22 05:01) urinate blood trimethoprim [From Bactrim] Adverse Reaction (Severe, Verified 02/05/22 05:01) urinate blood Home Medications: Divalproex Sodium [Depakote] 1,000 mg PO BID 01/31/22 [History] PARoxetine HCL [Paroxetine HCl] 10 mg PO DAILY 01/31/22 [History] Hx Tetanus, Diphtheria Vaccination/Date Given: Yes Hx Influenza Vaccination/Date Given: No Hx Pneumococcal Vaccination/Date Given: No Immunizations Up to Date: No Travel Risk - International Travel Have you traveled outside of the country in past 3 weeks: No - Coronavirus Screening Are you exhibiting any of the following symptoms?: No Symptoms: Headaches/Body Aches/Fatigue Close contact with a COVID-19 positive Pt in past 14-21 Days: No - Vaccine Status Have you recieved a Covid-19 vaccination: Yes 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 - Vaccination Dates Date of 2cond Vaccination (if applicable): 01/07/2021 - Review of Systems Constitutional: No Symptoms Eyes: No Symptoms Ears, Nose, & Throat: No Symptoms Respiratory: No Symptoms Cardiac: No Symptoms Abdominal/Gastrointestinal: No Symptoms Genitourinary Symptoms: No Symptoms Musculoskeletal: No Symptoms Skin: No Symptoms Neurological: No Symptoms, Headache Psychological: No Symptoms Endocrine: No Symptoms Hematologic/Lymphatic: No Symptoms Immunological/Allergic: No Symptoms - Past Medical History Pertinent Past Medical History: Yes Neurological History: Epilepsy, Seizures ENT History: No Pertinent History Cardiac History: No Pertinent History Respiratory History: No Pertinent History Endocrine Medical History: No Pertinent History Musculoskeletal History: Other GI Medical History: No Pertinent History History: No Pertinent History Psycho-Social History: Anxiety Male Reproductive Disorders: No Pertinent History Other Medical History: CHRONIC BACK PAIN (3 bulging disks) - Past Surgical History Past Surgical History: Yes Neuro Surgical History: No Pertinent History Cardiac: No Pertinent History Respiratory: No Pertinent History Gastrointestinal: No Pertinent History Genitourinary: No Pertinent History Musculoskeletal: Orthopedic Surgery Male Surgical History: No Pertinent History Other Surgical History: right leg surgery - Social History Smoking Status: Never smoker Exposure to second hand smoke: No Drug Use: none Patient Lives Alone: No Significant Family History: no pertinent family hx - Nursing Vital Signs Nursing Vital Signs: Initial Vital Signs Pulse Rate 73 02/05/22 04:44 Respiratory Rate 16 02/05/22 04:44 Blood Pressure 163/98 02/05/22 04:44 O2 Sat by Pulse Oximetry 98 02/05/22 04:44 Pain Scale Pain Intensity 8 Hypertensive - Physical Exam General Appearance: no apparent distress Eye Exam: PERRL/EOMI, eyes nml inspection Ears, Nose, Throat Exam: normal ENT inspection, TMs normal, pharynx normal, moist mucous membranes Neck Exam: normal inspection, non-tender, supple, full range of motion, No meningismus, No mass, No Brudzinski, No Kernig's, No carotid bruit Respiratory Exam: normal breath sounds, lungs clear, airway intact, No respiratory distress Cardiovascular Exam: regular rate/rhythm, normal heart sounds, normal peripheral pulses, capillary refill <2 sec, No murmur Gastrointestinal/Abdominal Exam: soft, normal bowel sounds Back Exam: normal inspection, normal range of motion, No CVA tenderness, No vertebral tenderness Extremity Exam: normal inspection, normal range of motion Mental Status Exam: alert, oriented x 3, 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 Exam: normal hearing, normal speech, PERRL, No abnormal eye position, No abnormal gag reflex Coordination/Gait Exam: normal finger to nose, normal cerebellar function, negative Romberg's sign Motor/Sensory Exam: no motor deficit, no sensory deficit, no pronator drift, negative Babinski's sign DTR Exam: bicep (R): 2+, bicep (L): 2+ Skin Exam: normal color, warm, dry Lymphatic Exam: No adenopathy SpO2 Interpretation: normal SpO2: 98 O2 Delivery: Room Air - Course Nursing assessment & vital signs reviewed: Yes Ordered Tests: Medication Summary Discontinued Medications Generic Name Dose Route Start Last Admin Trade Name Freq PRN Reason Stop Dose Admin Ketorolac Tromethamine 30 mg 02/05/22 05:25 02/05/22 05:33 Ketorolac Tromethamine 30 Mg/Ml Inj IM 02/05/22 05:26 30 mg STAT ONE Administration Ketorolac Tromethamine Confirm 02/05/22 05:32 Ketorolac Tromethamine 30 Mg/Ml Inj Administered 02/05/22 05:33 Dose 30 mg .ROUTE .STK-MED ONE Prochlorperazine Edisylate 10 mg 02/05/22 05:26 02/05/22 05:34 Prochlorperazine Edisylate 10 Mg/2 Ml Vial IM 02/05/22 05:27 10 mg STAT ONE Administration Prochlorperazine Edisylate Confirm 02/05/22 05:32 Prochlorperazine Edisylate 10 Mg/2 Ml Vial Administered 02/05/22 05:33 Dose 10 mg .ROUTE .STK-MED ONE - Progress Progress: improved Progress Note: 02/05/22 05:33 30mg IM Toradol/10mg IM compazine 02/05/22 06:[address] head 02/02/22, chronic history of MGHA's, similar symptoms to previous headaches,no fever,no nuchal rigidity Counseled pt/family regarding: diagnosis, need for follow-up - Departure Departure Disposition: Home Clinical Impression: Migraine Condition: Stable Critical Care Time: No Referrals: KATIE BHANDARI MD [Primary Care Provider] - Follow up/PCP as directed Instructions: Headache, Adult (DC) Additional Instructions: Follow up with your family MD Return to ER for increasing pain, focal weakness, or temperature greater than 100.5
[2022-02-05] MEDS ORDERED: TORAdol 30 mg Injection ONE (05:32)
[2022-02-05] MEDS ORDERED: Compazine 10 MG/2 ML ONE (05:32)
[2022-02-05 05:59] VITALS: BP 153/90; PULSE 70
== END 2022-02-05 05:59 | disposition home or self-care (01) ==
LOC: ED 04:44
DX: G43.909 Migraine, unspecified, not intractable, without status migrainosus (principal); Z79.899 Other long term (current) drug therapy
CPT/HCPCS: 96372; 99283; J1885

== ENCOUNTER 2022-05-22 11:19 | Emergency (ER) | payer OTHER ==
[2022-05-22 11:36] VITALS: BP 141/96; PULSE 59; O2SAT 98
--- NOTE | 2022-05-22 12:16 | ERPHSYRPT ---
- History of Present Illness Time Seen by Provider: 05/22/22 12:09 Source: patient Exam Limitations: no limitations Patient Subjective Stated Complaint: pt states that he had a virus and was dizzy when he got out of bed last night and he fell and hit his right eye on the bed post and he now has blurred vision in the right and a headache on the right Triage Nursing Assessment: Pt brought to the ER by his , hypertensive, rates eye/head pain as 6-7/10, some redness/bruising to the area around the right eye, denies any other injury, denies LOC, eyes PERRL, doesn't appear to be in any distress Occurred: this morning Reason for Fall: lost balance Injuries/Pain Location: face Loss of Consciousness: no loss of consciousness Quality: aching Severity of Pain-Max: mild Severity of Pain-Current: mild Modifying Factors: Improves With: nothing Associated Symptoms (Fall): vision changes (resolving) Allergies/Adverse Reactions: ceftriaxone sodium [From Rocephin] Allergy (Intermediate, Verified 05/22/22 11:36) Itching sulfamethoxazole [From Bactrim] Adverse Reaction (Severe, Verified 05/22/22 11:36) urinate blood trimethoprim [From Bactrim] Adverse Reaction (Severe, Verified 05/22/22 11:36) urinate blood Home Medications: Divalproex Sodium [Depakote] 1,000 mg PO BID 01/31/22 [History] PARoxetine HCL [Paroxetine HCl] 10 mg PO DAILY 01/31/22 [History] Prednisone 20 mg [Deltasone 20 mg] 20 mg PO DAILY 05/22/22 [History] Hx Tetanus, Diphtheria Vaccination/Date Given: Yes Hx Influenza Vaccination/Date Given: No Hx Pneumococcal Vaccination/Date Given: No Travel Risk - International Travel Have you traveled outside of the country in past 3 weeks: No - Coronavirus Screening Are you exhibiting any of the following symptoms?: No Close contact with a COVID-19 positive Pt in past 14-21 Days: No - Vaccine Status Have you recieved a Covid-19 vaccination: Yes P[employer]: Moderna - Vaccination Dates Date of 2cond Vaccination (if applicable): 01/07/2021 - Review of Systems Constitutional: No Symptoms Eyes: No Symptoms Ears, Nose, & Throat: No Symptoms Respiratory: No Symptoms Cardiac: No Symptoms Abdominal/Gastrointestinal: No Symptoms Genitourinary Symptoms: No Symptoms Musculoskeletal: No Symptoms Skin: No Symptoms Neurological: No Symptoms Psychological: No Symptoms Endocrine: No Symptoms Hematologic/Lymphatic: No Symptoms Immunological/Allergic: No Symptoms All Other Systems: Reviewed and Negative - Past Medical History Pertinent Past Medical History: Yes Neurological History: Epilepsy, Seizures ENT History: No Pertinent History Cardiac History: No Pertinent History Respiratory History: No Pertinent History Endocrine Medical History: No Pertinent History Musculoskeletal History: Other GI Medical History: No Pertinent History History: No Pertinent History Psycho-Social History: Anxiety Male Reproductive Disorders: No Pertinent History Other Medical History: CHRONIC BACK PAIN (3 bulging disks) - Past Surgical History Past Surgical History: Yes Neuro Surgical History: No Pertinent History Cardiac: No Pertinent History Respiratory: No Pertinent History Gastrointestinal: No Pertinent History Genitourinary: No Pertinent History Musculoskeletal: Orthopedic Surgery Male Surgical History: No Pertinent History Other Surgical History: right leg surgery - Social History Smoking Status: Never smoker Exposure to second hand smoke: No Drug Use: none Patient Lives Alone: No Significant Family History: no pertinent family hx - Nursing Vital Signs Nursing Vital Signs: Initial Vital Signs Temperature 97.7 F 05/22/22 11:26 Pulse Rate 59 L 05/22/22 11:26 Blood Pressure 141/96 05/22/22 11:26 O2 Sat by Pulse Oximetry 98 05/22/22 11:26 Pain Scale Pain Intensity 6 - Jc Coma Score Best Eye Response (Jc): (4) open spontaneously Best Verbal Response (Jc): (5) oriented Best Motor Response (Webster): (6) obeys commands Webster Total: 15 - Physical Exam General Appearance: no apparent distress Head Injury: contusions (Right eyebrow, upper eyelid) Eye Exam: PERRL/EOMI, eyes nml inspection ENT Exam: airway nml Neck Exam: supple, trachea midline Respiratory/Chest Exam: chest tenderness, normal breath sounds Cardiovascular Exam: normal heart sounds, regular rate/rhythm Gastrointestinal Exam: soft, normal bowel sounds Rectal Exam: deferred Back Exam: normal inspection, normal range of motion Extremity Exam: normal inspection, normal range of motion Neurologic Exam: alert, oriented x 3, cooperative Skin Exam: normal color, warm, dry SpO2 Interpretation: normal SpO2: 98 O2 Delivery: Room Air - Course Nursing assessment & vital signs reviewed: Yes - Progress Progress: unchanged Progress Note: 05/22/22 12:14 Minor fall and contused right eyebrow/upper lid, no injury to eye itself. Fx unlikely, offered CT - declined. Counseled pt/family regarding: diagnosis Medical Desision Making - Independent Historian Additional History obtained from: Spouse - Diagnostic Testing Diagnostic test were ordered, analyzed, and reviewed by me: No - Risk of complications Minimal Risk: Minimal risk of morbidity - Departure Departure Disposition: Home Clinical Impression: Facial contusion Qualifiers: Encounter type: initial encounter Qualified Code(s): S00.83XA - Contusion of other part of head, initial encounter Condition: Stable Critical Care Time: No Referrals: KATIE BHANDARI MD [Primary Care Provider] - Follow up/PCP as directed Instructions: Eye Contusion (DC) Additional Instructions: Apply ice pack if helpful and take OTC pain med, recheck as needed.
== END 2022-05-22 12:28 | disposition home or self-care (01) ==
LOC: ED 11:19
DX: S00.11XA Contusion of right eyelid and periocular area, initial encounter (principal); W01.190A Fall on same level from slipping, tripping and stumbling with subsequent striking against furniture, initial encounter; Y92.003 Bedroom of unspecified non-institutional (private) residence as the place of occurrence of the external cause; R51.9 Headache, unspecified; Z79.52 Long term (current) use of systemic steroids; Z79.899 Other long term (current) drug therapy
CPT/HCPCS: 99281